=== PATIENT | female | born 1950 | race Hispanic/Latino ===

== ENCOUNTER 2017-12-05 21:23 | Emergency (ER) | payer OTHER ==
[2017-12-05] MEDS ORDERED: NA CHLORIDE 0.9% 1,000 ML ONE (23:18)
[2017-12-05] MEDS ORDERED: METOCLOPRAMIDE 10 MG/2mL INJ ONE (23:18)
[2017-12-05] MEDS ORDERED: KETOROLAC 30 MG/ML INJ ONE (23:18)
[2017-12-05] MEDS ORDERED: DIPHENHYDRAMINE 50 MG/ML VIAL ONE (23:18)
--- NOTE | 2017-12-05 23:45 | ER ---
Nurse's Notes [facility] Name: Noreen Xiao Age: 67 yrs Sex: Female : 1950 Arrival Date: 12/05/2017 Time: 21:26 Bed 15 Private MD: Diagnosis: Headache Presentation: 12/05 21:45 Presenting complaint: Patient states: I've been under a lot of stress and I haven't tl2 been drinking water. I have a severe headache, occipital area to left yazidi. Denies nausea. Reports dizziness. Transition of care: patient was not received from another setting of care. Onset of symptoms was December 05, 2017 at 10:00. Risk Assessment: Do you want to hurt yourself or someone else? Patient reports no desire to harm self or others. Initial Sepsis Screen: Does the patient meet any 2 criteria? No. Patient's initial sepsis screen is negative. Does the patient have a suspected source of infection? No. Patient's initial sepsis screen is negative. Care prior to arrival: None. 21:45 Method Of Arrival: Ambulatory tl2 21:45 Acuity: AMBROSIO 3 tl2 Triage Assessment: 22:08 Headache History: Denies prior headaches. General: Appears in no apparent distress. tl2 uncomfortable, Behavior is calm, cooperative, appropriate for age. Pain: Complains of pain in occipital area Pain radiates to left yazidi Pain currently is 7 out of 10 on a pain scale. Quality of pain is described as sharp, Pain began 1 day ago. Also complains of no other associated symptoms. Neuro: Level of Consciousness is awake, alert, obeys commands, Oriented to person, place, time, situation, Auto Body Mechanic are equal bilaterally Moves all extremities. Gait is steady, Speech is normal, Facial symmetry appears normal, Pupils are PERRLA, Intact Reports dizziness, headache. Cardiovascular: Denies chest pain. Respiratory: Airway is patent Respiratory effort is even, unlabored, Respiratory pattern is regular, symmetrical. GI: No signs and/or symptoms were reported involving the gastrointestinal system. : No signs and/or symptoms were reported regarding the genitourinary system. Derm: Skin is pink, warm \T\ dry. Historical: - Allergies: 22:00 Codeine; tl2 22:00 Sulfa (Sulfonamide Antibiotics); tl2 - Home Meds: 22:00 Novolog Sub-Q [Active]; metformin 500 mg Oral tab 2 tabs 2 times per day [Active]; tl2 levemir [Active]; - PMHx: 22:00 Diabetes - IDDM; Rheumatoid Arthritis; acid reflux; Hyperlipidemia; ulcerative colitis; tl2 Asthma; - Immunization history:: Adult Immunizations up to date. - Social history:: Smoking status: Patient/guardian denies using tobacco. - Ebola Screening: : No symptoms or risks identified at this time. Screenin:11 Abuse screen: Denies threats or abuse. Nutritional screening: No deficits noted. tl2 Tuberculosis screening: No symptoms or risk factors identified. Fall Risk None identified. Assessment: 22:11 General: see triage assessment. tl2 22:56 Reassessment: Patient appears in no apparent distress at this time. Patient and/or tl2 family updated on plan of care and expected duration. Pain level reassessed. Patient is alert, oriented x 3, equal unlabored respirations, skin warm/dry/pink. 23:13 Reassessment: Patient appears in no apparent distress at this time. Patient and/or tl2 family updated on plan of care and expected duration. Pain level reassessed. Patient is alert, oriented x 3, equal unlabored respirations, skin warm/dry/pink. 12/06 00:12 Reassessment: Patient appears in no apparent distress at this time. Patient and/or tl2 family updated on plan of care and expected duration. Pain level reassessed. Patient is alert, oriented x 3, equal unlabored respirations, skin warm/dry/pink. Pt calling for ride, will discharge when family arrives. Pt verbalized understanding of discharge instructions, and need for follow up Patient states feeling better. Vital Signs: 12/05 22:08 BP 140 / 77; Pulse 83; Resp 18; Temp 97.9(O); Pulse Ox 95% on R/A; Weight 90.72 kg; tl2 Height 5 ft. 3 in. (160.02 cm); Pain 7/10; 23:12 BP 141 / 69; Pulse 84; Resp 18; Pulse Ox 94% on R/A; tl2 22:08 Body Mass Index 35.43 (90.72 kg, 160.02 cm) tl2 ED Course: 21:26 Patient arrived in ED. am2 21:45 Liyah Xavier, MELANIE is Primary Nurse. tl2 21:47 Triage completed. tl2 21:53 Alex Ortiz NP is PHCP. pm1 21:53 Braxton Jennings MD is Attending Physician. pm1 21:[address] via wheelchair. cw1 22:04 CT completed. Patient moved back from CT. cw1 22:08 Arm band placed on right wrist. tl2 22:11 Patient has correct armband on for positive identification. Placed in gown. Bed in low tl2 position. Call light in reach. Side rails up X 1. Adult w/ patient. 22:13 CT Head Brain wo Cont In Process Unspecified. EDMS 23:13 Inserted saline lock: 22 gauge in left hand, using aseptic technique. tl2 12/06 00:12 No provider procedures requiring assistance completed. IV discontinued, intact, tl2 bleeding controlled, No redness/swelling at site. Pressure dressing applied. Administered Medications: 12/05 23:25 Drug: Benadryl 25 mg Route: IVP; Site: left hand; tl2 12/06 00:14 Follow up: Response: No adverse reaction; Marked relief of symptoms tl2 12/05 23:25 Drug: Reglan 10 mg Route: IVP; Site: left hand; tl2 12/06 00:14 Follow up: Response: No adverse reaction; Marked relief of symptoms tl2 12/05 23:25 Drug: TORadol 15 mg Route: IVP; Site: left hand; tl2 12/06 00:14 Follow up: Response: No adverse reaction; Marked relief of symptoms tl2 12/05 23:25 Drug: NS 0.9% 1000 ml Route: IV; Rate: 1000 ml; Site: left hand; tl2 12/06 00:15 Follow up: IV Status: Completed infusion tl2 Outcome: 12/05 23:44 Discharge ordered by . pm1 12/06 00:12 Discharged to home via wheelchair, with family. tl2 Condition: stable Discharge instructions given to patient, family, Instructed on discharge instructions, follow up and referral plans. Demonstrated understanding of instructions, follow-up care. 00:41 Patient left the ED. tl2 Signatures: Dispatcher [employer] EDGA Zahira Camejo cw1 Alex Ortiz NP GRIPPER MACHINE OPERATOR pm1 Liyah Xavier RN RN tl2 Sole Oropeza am2 Corrections: (The following items were deleted from the chart) 00:13 00:12 Reassessment: Patient appears in no apparent distress at this time. Patient tl2 and/or family updated on plan of care and expected duration. Pain level reassessed. Patient is alert, oriented x 3, equal unlabored respirations, skin warm/dry/pink. Pt calling for ride, will discharge when family arrives Patient states feeling better. tl2
--- NOTE | 2017-12-05 23:45 | EDPHYS ---
Physician Documentation [facility] Name: Noreen Xiao Age: 67 yrs Sex: Female : 1950 Arrival Date: 12/05/2017 Time: 21:26 Bed 15 Private MD: ED Physician Braxton Jennings HPI: 12/05 23:00 This 67 yrs old Female presents to ER via Ambulatory with complaints of pm1 Headache. 12/06 00:31 The patient complains of pain to the occipital area. pm1 00:31 The patient describes the headache as aching, constant. Onset: The symptoms/episode pm1 began/occurred yesterday. Associated signs and symptoms: Pertinent positives: dizziness, Pertinent negatives: fever, neck stiffness, paresthesias, Photophobia rash, sinus congestion, sinus tenderness, vision changes, vomiting. Severity of symptoms: in the emergency department the pain is unchanged. Headache History: The patient has had previous headaches and this one is similar to previous episodes. The symptoms are alleviated by nothing. the symptoms are aggravated by touching occipital area. The patient has experienced similar episodes in the past, a few times. The patient has not recently seen a physician. Historical: - Allergies: 12/05 22:00 Codeine; tl2 22:00 Sulfa (Sulfonamide Antibiotics); tl2 - Home Meds: 22:00 Novolog Sub-Q [Active]; metformin 500 mg Oral tab 2 tabs 2 times per day [Active]; tl2 levemir [Active]; - PMHx: 22:00 Diabetes - IDDM; Rheumatoid Arthritis; acid reflux; Hyperlipidemia; ulcerative colitis; tl2 Asthma; - Immunization history:: Adult Immunizations up to date. - Social history:: Smoking status: Patient/guardian denies using tobacco. - Ebola Screening: : No symptoms or risks identified at this time. ROS: 12/06 00:31 Constitutional: Negative for fever, chills, and weight loss, Eyes: Negative for injury, pm1 pain, redness, and discharge, ENT: Negative for injury, pain, and discharge, Neck: Negative for injury, pain, and swelling, Cardiovascular: Negative for chest pain, palpitations, and edema, Respiratory: Negative for shortness of breath, cough, wheezing, and pleuritic chest pain, Abdomen/GI: Negative for abdominal pain, nausea, vomiting, diarrhea, and constipation, Back: Negative for injury and pain, MS/Extremity: Negative for injury and deformity, Skin: Negative for injury, rash, and discoloration. Neuro: Positive for dizziness, headache, Negative for numbness, syncope, near syncope, tingling, weakness. Exam: 00:31 Constitutional: This is a well developed, well nourished patient who is awake, alert, pm1 and in no acute distress. Head/Face: Normocephalic, atraumatic. Eyes: Pupils equal round and reactive to light, extra-ocular motions intact. Lids and lashes normal. Conjunctiva and sclera are non-icteric and not injected. Cornea within normal limits. Periorbital areas with no swelling, redness, or edema. ENT: Nares patent. No nasal discharge, no septal abnormalities noted. Tympanic membranes are normal and external auditory canals are clear. Oropharynx with no redness, swelling, or masses, exudates, or evidence of obstruction, uvula midline. Mucous membranes moist. Neck: Trachea midline, no thyromegaly or masses palpated, and no cervical lymphadenopathy. Supple, full range of motion without nuchal rigidity, or vertebral point tenderness. No Meningismus. Chest/axilla: Normal chest wall appearance and motion. Nontender with no deformity. No lesions are appreciated. Cardiovascular: Regular rate and rhythm with a normal S1 and S2. No gallops, murmurs, or rubs. Normal PMI, no JVD. No pulse deficits. Respiratory: Lungs have equal breath sounds bilaterally, clear to auscultation and percussion. No rales, rhonchi or wheezes noted. No increased work of breathing, no retractions or nasal flaring. Abdomen/GI: Soft, non-tender, with normal bowel sounds. No distension or tympany. No guarding or rebound. No evidence of tenderness throughout. Back: No spinal tenderness. No costovertebral tenderness. Full range of motion. Skin: Warm, dry with normal turgor. Normal color with no rashes, no lesions, and no evidence of cellulitis. MS/ Extremity: Pulses equal, no cyanosis. Neurovascular intact. Full, normal range of motion. 00:31 Neuro: Orientation: is normal, Mentation: is normal, Cranial nerves: CN II- XII are normal as tested, Cerebellar function: normal finger to nose testing, Motor: moves all fours, Sensation: is normal, no obvious gross deficits, Gait: is steady, at a normal pace, without difficulty. Vital Signs: 12/05 22:08 BP 140 / 77; Pulse 83; Resp 18; Temp 97.9(O); Pulse Ox 95% on R/A; Weight 90.72 kg; tl2 Height 5 ft. 3 in. (160.02 cm); Pain 7/10; 23:12 BP 141 / 69; Pulse 84; Resp 18; Pulse Ox 94% on R/A; tl2 22:08 Body Mass Index 35.43 (90.72 kg, 160.02 cm) tl2 MDM: 21:53 Patient medically screened. pm1 23:43 Data reviewed: vital signs. Counseling: I had a detailed discussion with the patient pm1 and/or guardian regarding: the historical points, exam findings, and any diagnostic results supporting the discharge/admit diagnosis, radiology results, the need for outpatient follow up, to return to the emergency department if symptoms worsen or persist or if there are any questions or concerns that arise at home. 23:43 ED course: pain improved with medications given in the ER. 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 Pain with palpation to occiptal area pm1 and describes pain as sharp and electric like with palpation. 12/05 21:53 Order name: CT Head Brain wo Cont pm1 12/05 23:09 Order name: IV Saline Lock; Complete Time: 23:11 pm1 Administered Medications: 23:25 Drug: Benadryl 25 mg Route: IVP; Site: left hand; 2 12/06 00:14 Follow up: Response: No adverse reaction; Marked relief of symptoms 2 12/05 23:25 Drug: Reglan 10 mg Route: IVP; Site: left hand; tl2 12/06 00:14 Follow up: Response: No adverse reaction; Marked relief of symptoms tl2 12/05 23:25 Drug: TORadol 15 mg Route: IVP; Site: left hand; tl2 12/06 00:14 Follow up: Response: No adverse reaction; Marked relief of symptoms tl2 12/05 23:25 Drug: NS 0.9% 1000 ml Route: IV; Rate: 1000 ml; Site: left hand; tl2 12/06 00:15 Follow up: IV Status: Completed infusion tl2 Disposition: 12/05/17 23:44 Discharged to Home. Impression: Headache. - Condition is Stable. - Discharge Instructions: General Headache Without Cause. - Medication Reconciliation Form, Thank You Letter form. - Follow up: Emergency Department; When: As needed; Reason: Worsening of condition. Follow up: Private Physician; When: 2 - 3 days; Reason: Recheck today's complaints, Continuance of care, Re-evaluation by your physician. - Problem is new. - Symptoms have improved. Addendum: 12/07/2017 09:27 Co-signature as Attending Physician, Braxton Jennings MD I agree with the assessment and c ferrer plan of care. Signatures: Dispatcher [employer] EDTN Braxton Jennings MD MD cha Marinas, Patrick, PCMH SPECIALIST PCMH SPECIALIST pm1 Liyah Xavier RN RN tl2 Corrections: (The following items were deleted from the chart) 12/06 00:41 12/05 23:44 12/05/2017 23:44 Discharged to Home. Impression: Headache. Condition is tl2 Stable. Forms are Medication Reconciliation Form, Thank You Letter, Antibiotic Education, Prescription Opioid Use. Follow up: Emergency Department; When: As needed; Reason: Worsening of condition. Follow up: Private Physician; When: 2 - 3 days; Reason: Recheck today's complaints, Continuance of care, Re-evaluation by your physician. Problem is new. Symptoms have improved. pm1
[2017-12-06 00:51] VITALS: TEMP 97.9
[2017-12-06 00:52] VITALS: BP 141/69; O2SAT 94
--- NOTE | 2017-12-06 13:11 | RAD REPORT ---
EXAM DESCRIPTION: CT - Head Brain Wo Cont - 12/06/2017 12:33 am CLINICAL HISTORY: HEADACHE COMPARISON: Head Brain Wo Cont dated 12/12/2015 TECHNIQUE: All CT scans are performed using dose optimization technique as appropriate and may inclu de automated exposure control or mA/KV adjustment according to patient size. FINDINGS: No intracranial hemorrhage, hydrocephalus or extra-axial fluid collection.No areas of brai n edema or evidence of midline shift. The paranasal sinuses and mastoids are essentially clear. The calvarium is intact. IMPRESSION: No acute intracranial abnormality.
== END 2017-12-06 00:41 | disposition home or self-care (01) ==
LOC: ER 21:23
DX: R51 Headache (principal); E11.9 Type 2 diabetes mellitus without complications; E78.5 Hyperlipidemia, unspecified; J45.909 Unspecified asthma, uncomplicated; Z88.6 Allergy status to analgesic agent; Z88.2 Allergy status to sulfonamides; Z79.4 Long term (current) use of insulin
CPT/HCPCS: 70450; 96361; 96374; 96375; 99284; J2765; J7030

== ENCOUNTER 2018-10-25 18:28 | Emergency (ER) | payer OTHER ==
[2018-10-25] MEDS ORDERED: D50W 25 GM/50 ML SYRINGE IV ONE (19:09)
[2018-10-25] MEDS ORDERED: NA CHLORIDE 0.9% 500 ML ONE (19:09)
[2018-10-25 19:11] LABS: Absolute Lymphocytes (CBC) 2.2 K/uL (0.7-4.9); Absolute Monocytes 1.1 K/uL (0.1-1.3); Absolute Neutrophil 8.8 K/uL (1.8-8.0); Eosinophils % 3.7 % (0-4.4); Hematocrit 42.3 % (36.0-45.0); Lymphocytes % 17.2 % (15.3-44.8); MPV 8.4 fL (7.6-11.3); Monocytes % 8.9 % (3.3-12.3); RBC Red Blood Cell Count 4.66 M/uL (3.86-4.86)
[2018-10-25 19:36] LABS: ALT/SGPT 29 U/L (12-78); AST/SGOT 20 U/L (15-37); Albumin 3.8 g/dL (3.4-5.0); Alkaline Phosphatase 75 U/L (45-117); BUN Blood Urea Nitrogen 16 mg/dL (7-18); Bicarbonate 24 mmol/L (21-32); Bilirubin Direct 0.1 mg/dL (0-0.2); Bilirubin Total 0.5 mg/dL (0.2-1.0); Glucose Level 107 mg/dL (74-106); Lipase 171 U/L (73-393); Potassium 3.5 mmol/L (3.5-5.1); Protein, Total 7.5 g/dL (6.4-8.2); Sodium Level 138 mmol/L (136-145); Troponin I < 0.02 ng/mL (0.0-0.045)
[2018-10-25] MEDS ORDERED: ONDANSETRON 4 MG/2 ML VIAL ONE (19:53)
[2018-10-25] MEDS ORDERED: FAMOTIDINE 20 MG/2 ML VIAL IV ONE (19:53)
[2018-10-25 20:02] LABS: Urine Bacteria NONE SEEN /HPF (<20); Urine Culture Reflex Order NOT NEEDED; Urine Mucus 1+ /HPF (NONE SEEN); Urine RBC <5 /HPF (NONE SEEN)
[2018-10-25 20:02] LABS: Urine Blood NEGATIVE (NEG); Urine Glucose TRACE (NEG); Urine Protein NEGATIVE (NEG); Urine pH 5.5 (5.0-7.0)
--- NOTE | 2018-10-25 20:31 | EDPHYS ---
Physician Documentation [facility] Name: Noreen Xiao Age: 68 yrs Sex: Female : 1950 Arrival Date: 10/25/2018 Time: 18:29 Bed 19 Private MD: Unknown, Unknown ED Physician Braxton Jennings HPI: 10/25 18:55 This 68 yrs old Female presents to ER via Wheelchair with complaints of Low cp Blood Sugar, Nausea. 18:55 The patient or guardian reports hypoglycemia, that was potentially precipitated by cp believes she self administered too much insulin. 18:55 Onset: The symptoms/episode began/occurred today. Associated signs and symptoms: cp Pertinent positives: diaphoresis, nausea. Historical: - Allergies: 18:40 Codeine; sv 18:40 Sulfa (Sulfonamide Antibiotics); sv - Home Meds: 20:28 levemir [Active]; metformin 500 mg Oral tab 2 tabs 2 times per day [Active]; Novolog ae4 Sub-Q [Active]; - PMHx: 18:40 acid reflux; Asthma; Diabetes - IDDM; Hyperlipidemia; Rheumatoid Arthritis; ulcerative sv colitis; - Immunization history:: Adult Immunizations up to date. - Social history:: Smoking status: Patient/guardian denies using tobacco. - Ebola Screening: : Patient negative for fever greater than or equal to 101.5 degrees Fahrenheit, and additional compatible Ebola Virus Disease symptoms Patient denies exposure to infectious person Patient denies travel to an Ebola-affected area in the 21 days before illness onset. ROS: 19:02 Constitutional: Negative for body aches, chills, fever, poor PO intake. cp 19:02 Eyes: Negative for injury, pain, redness, and discharge. cp 19:02 ENT: Negative for drainage from ear(s), ear pain, sore throat, difficulty swallowing, difficulty handling secretions. 19:02 Cardiovascular: Negative for chest pain, edema, palpitations. 19:02 Respiratory: Negative for cough, shortness of breath, wheezing. 19:02 Abdomen/GI: Positive for nausea, Negative for abdominal pain, vomiting, diarrhea, constipation, black/tarry stool, rectal bleeding. 19:02 Back: Negative for pain at rest, pain with movement. 19:02 Skin: Negative for cellulitis, rash. 19:02 Neuro: Negative for altered mental status, dizziness, headache, numbness, syncope, weakness. 19:02 All other systems are negative. Exam: 19:05 Constitutional: The patient appears in no acute distress, alert, awake, non-toxic, well cp developed, well nourished, diaphoretic. 19:05 Head/Face: Normocephalic, atraumatic. cp 19:05 Eyes: Periorbital structures: appear normal, Conjunctiva: normal, no exudate, no injection, Sclera: no appreciated abnormality, Lids and lashes: appear normal, bilaterally. 19:05 ENT: External ear(s): are unremarkable, Ear canal(s): are normal, clear, TM's: are normal, no evidence of bulging, no erythema, Nose: is normal, Mouth: Lips: moist, Oral mucosa: pink and intact, moist, Posterior pharynx: is normal, airway is patent, no erythema, no exudate. 19:05 Neck: ROM/movement: is normal, is supple, without pain, no range of motions limitations, no nuchal rigidity. 19:05 Chest/axilla: Inspection: normal, Palpation: is normal, no crepitus, no tenderness. 19:05 Cardiovascular: Rate: bradycardic, Rhythm: regular, Edema: is not appreciated, JVD: is not appreciated. 19:05 Respiratory: the patient does not display signs of respiratory distress, Respirations: normal, no use of accessory muscles, no retractions, no splinting, no tachypnea, labored breathing, is not present, Breath sounds: are clear throughout, no decreased breath sounds, no stridor, no wheezing. 19:05 Abdomen/GI: Inspection: abdomen appears normal, Bowel sounds: active, all quadrants, Palpation: abdomen is soft and non-tender, in all quadrants, rebound tenderness, is not appreciated, voluntary guarding, is not appreciated, involuntary guarding, is not appreciated. 19:05 Back: CVA tenderness, is absent. 19:05 Skin: no rash present. 19:05 Neuro: Orientation: to person, place \T\ time. Mentation: is normal, Cerebellar function: Romberg testing is negative, normal finger to nose testing, heel to pearce testing is normal, Motor: moves all fours, strength is normal, Sensation: is normal. 19:25 ECG was reviewed by the Attending Physician. cp Vital Signs: 18:40 BP 153 / 70; Pulse 59; Resp 24; Temp 97.4; Pulse Ox 97% ; Weight 90.72 kg; Height 5 ft. sv 3 in. (160.02 cm); Pain 0/10; 20:28 BP 152 / 65; Pulse 83; Resp 17; Pulse Ox 96% on R/A; ae4 18:40 Body Mass Index 35.43 (90.72 kg, 160.02 cm) sv NIH Stroke Scale Scores: 19:05 NIHSS Score: 0 cp MDM: 18:42 Patient medically screened. cp 19:00 Differential diagnosis: DKA, hyperglycemia, hypoglycemic episode, CVA, acute MO. cp 20:30 Data reviewed: vital signs, nurses notes, lab test result(s), EKG, and as a result, I cp will discharge patient. 20:30 Test interpretation: by ED physician or midlevel provider: ECG. Counseling: I had a cp detailed discussion with the patient and/or guardian regarding: the historical points, exam findings, and any diagnostic results supporting the discharge/admit diagnosis, lab results, to return to the emergency department if symptoms worsen or persist or if there are any questions or concerns that arise at home. Response to treatment: the patient's symptoms have markedly improved after treatment, VSS. Patient reports symptoms markedly improved. Will discharge to home for continued monitoring. 10/25 18:48 Order name: Basic Metabolic Panel; Complete Time: 20:13 10/25 18:48 Order name: CBC with Diff; Complete Time: 19:31 10/25 19:30 Interpretation: Normal except: WBC 12.7; NEUT A 8.8. 10/25 18:48 Order name: Creatinine for Radiology; Complete Time: 20:13 10/25 18:48 Order name: Hepatic Function; Complete Time: 20:13 10/25 18:48 Order name: Lipase; Complete Time: 20:13 10/25 18:48 Order name: Urine Microscopic Only; Complete Time: 20:13 10/25 18:48 Order name: IV Saline Lock; Complete Time: 19:03 10/25 18:48 Order name: Troponin I; Complete Time: 20:13 10/25 18:48 Order name: EKG; Complete Time: 18:50 10/25 19:56 Order name: Urine Dipstick--Ancillary (enter results); Complete Time: 20:13 mw2 10/25 18:48 Order name: Labs collected and sent; Complete Time: 19:03 cp 10/25 18:48 Order name: Urine Dipstick-Ancillary (obtain specimen); Complete Time: 20:18 cp 10/25 18:48 Order name: EKG - Nurse/Tech; Complete Time: 19:15 cp 10/25 20:14 Order name: PO challenge: please feed with sandwich; Complete Time: 20:42 cp EC:25 Rate is 75 beats/min. Rhythm is regular. UT interval is normal. QRS interval is normal. cp QT interval is normal. Interpreted by me. Reviewed by me. Administered Medications: 18:54 Drug: NS 0.9% 500 ml Route: IV; Rate: bolus; Site: left antecubital; ae4 19:23 Follow up: IV Status: Completed infusion ae4 18:55 Drug: D50W 25 ml Route: IVP; Site: left antecubital; ae4 19:22 Follow up: Response: Other; FSBS 183 ae4 19:48 Drug: Zofran 4 mg Route: IVP; Site: left antecubital; cc3 20:20 Follow up: Response: Nausea is decreased ae4 19:52 Drug: Pepcid 20 mg Route: IVP; Site: left antecubital; cc3 20:20 Follow up: Response: No adverse reaction; Nausea is decreased ae4 Point of Care Testing: Blood Glucose: 18:33 Blood Glucose: 77 mg/dL; sv 19:22 Blood Glucose: 183 mg/dL; ae4 20:23 Blood Glucose: 183 mg/dL; ae4 Ranges: Critical Glucose Levels:Adult <50 mg/dl or >400 mg/dl <40 mg/dl or >180 mg/dl Disposition: 10/26 08:27 Co-signature as Attending Physician, Braxton Jennings MD I agree with the assessment and albert plan of care. Disposition: 10/25/18 20:31 Discharged to Home. Impression: Hypoglycemia, unspecified, Nausea. - Condition is Stable. - Discharge Instructions: Hypoglycemia, Nausea, Adult, Blood Glucose Monitoring, Adult. - Prescriptions for Zofran 4 mg Oral Tablet - take 1 tablet by ORAL route every 12 hours As needed; 20 tablet. - Medication Reconciliation Form, Thank You Letter, Antibiotic Education, Prescription Opioid Use form. - Follow up: Private Physician; When: 1 - 2 days; Reason: Worsening of condition. - Problem is new. - Symptoms have improved. NIH Stroke Scale - NIH Stroke Score Date: 10/25/2018 Time: 19:05 Total Score = 0 1a. Level of Consciousness (LOC) - 0(Alert) 1b. Level of Consciousness (LOC) (Year \T\ Age) - 0(Both) 1c. LOC Commands (Open \T\ Closes Eyes/Consumer Marketing Specialist) - 0(Both) 2. Best Gaze (Lateral Gaze Paresis) - 0(Normal) 3. Visual Field Loss - 0(No visual loss) 4. Facial Palsy - 0(Normal) 5a. Left Arm: Motor (10-second hold) - 0(No drift) 5b. Right Arm: Motor (10-second hold) - 0(No drift) 6a. Left Leg: Motor (5-second hold - always test supine) - 0(No drift) 6b. Right Leg: Motor (5-second hold - always test supine) - 0(No drift) 7. Limb Ataxia (finger/nose \T\ heel/pearce - test with eyes open) - 0(Absent) 8. Sensory Loss (pinprick arms/legs/face) - 0(Normal) 9. Best Language: Aphasia (description/naming/reading) - 0(No aphasia) 10. Dysarthria (speech clarity - read or repeat words) - 0(Normal) 11. Extinction and Inattention (visual/tactile/auditory/spatial/personal) - 0(No abnormality) Initials: cp Signatures: Dispatcher [employer] Ivory Blunt RN RN sv Anderson, Corey, MD MD cha Page, Corey, PA PA cp Lee Prater RN RN jb4 Kala Camarena cc3 Ozzy Osborne RN RN ae4 Corrections: (The following items were deleted from the chart) 10/25 19:32 19:30 Normal except: WBC 12.7. cp cp 20:58 20:31 10/25/2018 20:31 Discharged to Home. Impression: Hypoglycemia, jb4 unspecified; Nausea. Condition is Stable. Forms are Medication Reconciliation Form, Thank You Letter, Antibiotic Education, Prescription Opioid Use. Follow up: Private Physician; When: 1 - 2 days; Reason: Worsening of condition. Problem is new. Symptoms have improved. cp
--- NOTE | 2018-10-25 20:31 | ER ---
Nurse's Notes [facility] Name: Noreen Xiao Age: 68 yrs Sex: Female : 1950 Arrival Date: 10/25/2018 Time: 18:29 Bed 19 Private MD: Unknown, Unknown Diagnosis: Hypoglycemia, unspecified;Nausea Presentation: 10/25 18:33 Presenting complaint: Patient states: hypoglycemia, sweating, nausea, BS-60 at home, sv tried to eat foods to bring it up but then started getting nauseated. Symptoms started today. Transition of care: patient was not received from another setting of care. Onset of symptoms was October 25, 2018. Initial Sepsis Screen: Does the patient meet any 2 criteria? No. Patient's initial sepsis screen is negative. Does the patient have a suspected source of infection? No. Patient's initial sepsis screen is negative. Care prior to arrival: None. 18:33 Method Of Arrival: Wheelchair sv 18:33 Acuity: AMBROSIO 3 sv 20:27 Risk Assessment: Do you want to hurt yourself or someone else? Patient reports no ae4 desire to harm self or others. Triage Assessment: 20:27 General: Appears uncomfortable. General: Behavior is anxious. GI: Reports nausea. ae4 Historical: - Allergies: 18:40 Codeine; sv 18:40 Sulfa (Sulfonamide Antibiotics); sv - Home Meds: 20:28 levemir [Active]; metformin 500 mg Oral tab 2 tabs 2 times per day [Active]; Novolog ae4 Sub-Q [Active]; - PMHx: 18:40 acid reflux; Asthma; Diabetes - IDDM; Hyperlipidemia; Rheumatoid Arthritis; ulcerative sv colitis; - Immunization history:: Adult Immunizations up to date. - Social history:: Smoking status: Patient/guardian denies using tobacco. - Ebola Screening: : Patient negative for fever greater than or equal to 101.5 degrees Fahrenheit, and additional compatible Ebola Virus Disease symptoms Patient denies exposure to infectious person Patient denies travel to an Ebola-affected area in the 21 days before illness onset. Screenin:27 Abuse screen: Denies threats or abuse. Nutritional screening: No deficits noted. ae4 Tuberculosis screening: No symptoms or risk factors identified. Fall Risk None identified. Assessment: 18:35 General: Appears distressed, uncomfortable, Behavior is cooperative, anxious, crying, ae4 restless. Pain: Denies pain. Neuro: Level of Consciousness is awake, alert, obeys commands, Oriented to person, place, time, situation, Appropriate for age. Cardiovascular: Heart tones S1 S2 present Rhythm is regular. Respiratory: Airway is patent Respiratory effort is even, unlabored, Respiratory pattern is regular, symmetrical, Breath sounds are clear bilaterally. GI: Abdomen is round Reports nausea. : No signs and/or symptoms were reported regarding the genitourinary system. EENT: No signs and/or symptoms were reported regarding the EENT system. Derm: Skin is diaphoretic, Skin is normal, Skin temperature is warm. Musculoskeletal: Reports Generalized weakness. 20:29 Reassessment: Patient appears in no apparent distress at this time. Patient and/or ae4 family updated on plan of care and expected duration. Pain level reassessed. Patient states feeling better. Patient states symptoms have improved. 20:57 Reassessment: Patient appears in no apparent distress at this time. Patient and/or jb4 family updated on plan of care and expected duration. Pain level reassessed. Patient is alert, oriented x 3, equal unlabored respirations, skin warm/dry/pink. Patient states feeling better. Vital Signs: 18:40 BP 153 / 70; Pulse 59; Resp 24; Temp 97.4; Pulse Ox 97% ; Weight 90.72 kg; Height 5 ft. sv 3 in. (160.02 cm); Pain 0/10; 20:28 BP 152 / 65; Pulse 83; Resp 17; Pulse Ox 96% on R/A; ae4 18:40 Body Mass Index 35.43 (90.72 kg, 160.02 cm) sv NIH Stroke Scale Scores: 19:05 NIHSS Score: 0 cp ED Course: 18:29 Patient arrived in ED. ag5 18:29 Unknown, Unknown is Private Physician. ag5 18:40 Braxton Merino PA is PHCP. cp 18:40 Braxton Jennings MD is Attending Physician. cp 18:40 Triage completed. sv 18:41 Arm band placed on. sv 18:50 Ozzy Osborne, MELANIE is Primary Nurse. ae4 19:03 Initial lab(s) drawn, by me, sent to lab. Inserted saline lock: 22 gauge in left mh5 antecubital area, using aseptic technique. Blood collected. 19:04 Patient has correct armband on for positive identification. Placed in gown. Bed in low mh5 position. Call light in reach. Adult w/ patient. Warm blanket given. potline monitor on. Pulse ox on. NIBP on. 20:57 No provider procedures requiring assistance completed. IV discontinued, intact, jb4 bleeding controlled, No redness/swelling at site. Administered Medications: 18:54 Drug: NS 0.9% 500 ml Route: IV; Rate: bolus; Site: left antecubital; ae4 19:23 Follow up: IV Status: Completed infusion ae4 18:55 Drug: D50W 25 ml Route: IVP; Site: left antecubital; ae4 19:22 Follow up: Response: Other; FSBS 183 ae4 19:48 Drug: Zofran 4 mg Route: IVP; Site: left antecubital; cc3 20:20 Follow up: Response: Nausea is decreased ae4 19:52 Drug: Pepcid 20 mg Route: IVP; Site: left antecubital; cc3 20:20 Follow up: Response: No adverse reaction; Nausea is decreased ae4 Point of Care Testing: Blood Glucose: 18:33 Blood Glucose: 77 mg/dL; sv 19:22 Blood Glucose: 183 mg/dL; ae4 20:23 Blood Glucose: 183 mg/dL; ae4 Ranges: Intake: Outcome: 20:31 Discharge ordered by MD. cp 20:57 Discharged to home ambulatory, with family. jb4 20:57 Condition: stable 20:57 Discharge instructions given to patient, family, Instructed on discharge instructions, follow up and referral plans. medication usage, Demonstrated understanding of instructions, follow-up care, medications, Prescriptions given X 1. 20:58 Patient left the ED. jb4 NIH Stroke Scale - NIH Stroke Score Date: 10/25/2018 Time: 19:05 Total Score = 0 1a. Level of Consciousness (LOC) - 0(Alert) 1b. Level of Consciousness (LOC) (Year \T\ Age) - 0(Both) 1c. LOC Commands (Open \T\ Closes Eyes/Telehealth Director) - 0(Both) 2. Best Gaze (Lateral Gaze Paresis) - 0(Normal) 3. Visual Field Loss - 0(No visual loss) 4. Facial Palsy - 0(Normal) 5a. Left Arm: Motor (10-second hold) - 0(No drift) 5b. Right Arm: Motor (10-second hold) - 0(No drift) 6a. Left Leg: Motor (5-second hold - always test supine) - 0(No drift) 6b. Right Leg: Motor (5-second hold - always test supine) - 0(No drift) 7. Limb Ataxia (finger/nose \T\ heel/pearce - test with eyes open) - 0(Absent) 8. Sensory Loss (pinprick arms/legs/face) - 0(Normal) 9. Best Language: Aphasia (description/naming/reading) - 0(No aphasia) 10. Dysarthria (speech clarity - read or repeat words) - 0(Normal) 11. Extinction and Inattention (visual/tactile/auditory/spatial/personal) - 0(No abnormality) Initials: cp Signatures: Ivory Parish, RN RN Braxton Cloud PA PA cp Bryson, James, RN RN chip4 Ana Villarreal 5 Kala Camarena 3 Marcelle Rausch 5 Ozzy Osborne RN RN ae4
[2018-10-25 21:17] VITALS: TEMP 97.4
[2018-10-25 21:19] VITALS: BP 152/65; O2SAT 96
--- NOTE | 2018-10-26 07:58 | EKG ---
Test Date: 2018-10-25 Test Time: 19:17:30 [employer] Cork: KAVITA MEASUREMENT RESULTS: Intervals: Rate: 75 CT: 142 QRSD: 92 QT: 422 QTc: 471 [place]: P: 49 CT: 142 QRS: 26 T: 67 INTERPRETIVE STATEMENTS: Normal sinus rhythm Possible Left atrial enlargement Possible Anterior infarct, age undetermined Abnormal ECG Compared to ECG 06/19/2013 09:53:18 Myocardial infarct finding now present Electronically Signed On 10-26-18 07:56:59 CDT by Eliseo Gilbert
== END 2018-10-25 20:58 | disposition home or self-care (01) ==
LOC: ER 18:28
DX: E11.649 Type 2 diabetes mellitus with hypoglycemia without coma (principal); E78.5 Hyperlipidemia, unspecified; Z79.4 Long term (current) use of insulin; Z88.2 Allergy status to sulfonamides; Z88.5 Allergy status to narcotic agent
CPT/HCPCS: 93005; 85025; 80048; 36415; 82962 ×3; 80076; 84484; 83690; 96375; 96374; 99284; J2405; 81003; 81015

== ENCOUNTER 2020-02-01 14:15 | Emergency (ER) | payer OTHER ==
--- OUTSIDE RECORDS SUMMARY | 2020-02-01 14:16 | XMS REPORT | Continuity of Care Document ---
:[address] [facility] t Address [facility] [address] [place] [address] Care Team Providers Name Role Phone Unavailable Unavailable Unavailable Problems Condition Condition Condition Status Onset Resolution Last Treating Co mments Source Name Details Category Date Date Treatment Clinician Date Arthritis Arthritis Problem Active [facility] right [facility] Sprain of Sprain of Problem Active [facility] unspecifie unspecifie Aliza kes - d site of d site of Tho leticia right right l knee, knee, Outpati initial initial ent encounter encounter Clin ics Pain in Pain in Problem Active [facility] joint of joint of [facility] - left hand left hand [facility]o [facility] l [facility] Pain, Pain, Diagnosis Active [facility] joint, joint, [facility] - knee, knee, [facility] right right l Outpati ent Clinics Trigger Trigger Problem Active [facility] finger, finger, [facility] - left left Memoria middle middle l finger finger Outpati ent Clinics Trigger Trigger Problem Active [facility] finger, finger, [facility] - left ring left ring Tho leticia finger finger l [facility] Allergies, Adverse Reactions, Alerts Allergy Allergy Status Severity Reaction(s) Onset Inactive Treating Comm ents Source Name Type Date Date Clinician penicill Adverse Active Info Not [facility] in Reaction Available [facility] codeine Adverse Active Info Not [facility] Reaction Available [facility] Sulfa Adverse Active Info Not [facility] Reaction Available [facility] Medications Ordered Filled Start Stop Current Ordering Indication Dosage Frequency Signature Comments Components Source Medication Medication Date Date Medication? Clinician (SIG) Name Name Krill Oil Krill Oil Yes Dinh not [facility] [place] [place] Liu defined [facility] - [facility] Co Q 10 Co Q 10 Yes Dinh not [facility] Liu defined [facility] Metformin Metformin Yes Dinh [address] [facility] [facility] HCl HCl Liu with a [facility] - meal [facility] Vitamin D Vitamin D Yes Dinh not [facility] Liu defined [facility] NovoFine NovoFine Yes Dinh not [facility] Liu defined [facility] NovoLog NovoLog Yes Dinh not [facility] Flexpen Flexpen Liu defined Luke s - Memoria [facility] Levemir Levemir Yes Dinh not [facility] FlexTouch FlexTouch Liu defined [facility] Clinics Procedures This patient has no known procedures. Encounters Start End Encounter Admission Attending Care Care Encounter Source Date/Time Date/Time Type Type Clinicians Facility Department ID 2019-03-18 2019-03-18 Outpatient Puja Whitfield [id number] 08:00:00 08:00:00 t Bone Bone and [facility] - and [facility] Clinic of [facility] Results This patient has no known results.
--- NOTE | 2020-02-01 16:14 | RAD REPORT ---
EXAM DESCRIPTION: CT - Head Brain Wo Cont - 02/01/2020 3:57 pm CLINICAL HISTORY: Head injury status post trauma. Headache COMPARISON: 2019 TECHNIQUE: Computed axial tomography of the head was obtained. IV contrast was not requested. All CT scans are performed using dose optimization technique as appropriate and may include automated exposure control or mA/KV adjustment according to patient size. FINDINGS: An intracranial bleed is not seen . The ventricles are normal in caliber. No extra-axial fluid collection is noted. Mild low-density areas within periventricular, deep and subcortical white matter likely represent isc hemic changes secondary to small vessel disease. Fluid within the sinuses/ mastoids is not seen. IMPRESSION: No acute intracranial abnormality is seen. If patient's symptoms persist MRI of the bra in would be recommended.
--- NOTE | 2020-02-01 16:20 | ER ---
Nurse's Notes [facility] Name: Noreen Xiao Age: 69 yrs Sex: Female : 1950 Arrival Date: 02/01/2020 Time: 14:16 Bed 2 Private MD: Mariola Skelton Diagnosis: Unspecified injury of head Presentation: 01/31 14:38 Chief complaint: Patient states: Hit her head while loading into wheelchair van on ll1 Thursday. No LOC. Has ROMERO and dizziness since. Sent in by her doctor for eval. Coronavirus screen: Client denies travel out of the [place] in the last 14 days. At this time, the client does not indicate any symptoms associated with coronavirus-19. Ebola Screen: Patient denies travel to an Ebola-affected area in the 21 days before illness onset. Initial Sepsis Screen: Does the patient meet any 2 criteria? No. Patient's initial sepsis screen is negative. Risk Assessment: Do you want to hurt yourself or someone else? Patient reports no desire to harm self or others. Onset of symptoms was January 27, 2020. 14:38 Method Of Arrival: Ambulatory ll1 14:38 Acuity: AMBROSIO 3 ll1 14:42 Initial Sepsis Screen: Does the patient have a suspected source of infection? No. sv Patient's initial sepsis screen is negative. Historical: - Allergies: 14:41 Sulfa (Sulfonamide Antibiotics); ll1 14:41 Codeine; ll1 - PMHx: 14:41 acid reflux; Asthma; Diabetes - IDDM; Hyperlipidemia; Rheumatoid Arthritis; ulcerative ll1 colitis; breast CA-2005; - PSHx: 14:41 cataract repair; ll1 - Immunization history:: Flu vaccine is up to date. - Social history:: Smoking status: Patient denies any tobacco usage or history of. Screenin:38 Abuse screen: Denies threats or abuse. Denies injuries from another. Nutritional sv screening: No deficits noted. Tuberculosis screening: No symptoms or risk factors identified. Fall Risk None identified. Assessment: 15:12 General: Appears in no apparent distress. well developed, Behavior is calm, sv cooperative, appropriate for age, Reports she has had multiple concussions in the past since she was 32. Pain: Complains of pain in top of head, left temporal area and right temporal area Pain currently is 8 out of 10 on a pain scale. Neuro: Level of Consciousness is awake, alert, obeys commands, Oriented to person, place, time, situation, Moves all extremities. Full function Gait is steady, Speech is normal, Reports dizziness, headache. Respiratory: Respiratory effort is even, unlabored, Respiratory pattern is regular, symmetrical. Derm: Skin is normal. Musculoskeletal: Range of motion: intact in all extremities. 15:12 Neuro: Denies blurred vision photophobia diplopia. sv 16:46 Reassessment: Patient appears in no apparent distress at this time. No changes from sv previously documented assessment. Patient and/or family updated on plan of care and expected duration. Pain level reassessed. Patient is alert, oriented x 3, equal unlabored respirations, skin warm/dry/pink. Vital Signs: 14:38 BP 151 / 76; Pulse 84; Resp 17; Temp 98.2; Pulse Ox 96% ; Pain 8/10; ll1 15:30 BP 140 / 75; Pulse 77; Resp 16; Pulse Ox 96% on R/A; sv 16:10 BP 120 / 54; Pulse 73; Resp 16; Pulse Ox 95% on R/A; sv ED Course: 14:16 Patient arrived in ED. ds1 14:21 Mariola Skelton is Private Physician. ds1 14:38 Ivory Parish, RN is Primary Nurse. sv 14:38 Awaiting ED provider evaluation. sv 14:38 Patient placed. sv 14:38 Patient has correct armband on for positive identification. Bed in low position. Call sv light in reach. Door closed. Head of bed elevated. 14:40 Triage completed. ll1 15:03 Gilmar Heath PA is PHCP. jmm 15:03 Robbi Cullen MD is Attending Physician. jmm 15:11 Awaiting ED provider evaluation. sv 15:23 Nurse Practitioner and/or Physician Director Of Emergency Nursing to see patient. sv 15:30 Pulse ox on. NIBP on. Warm blanket given. sv 15:[address] Scan. sv 15:57 CT Head Brain wo Cont In Process Unspecified. EDMS 16:46 No provider procedures requiring assistance completed. Patient did not have IV access sv during this emergency room visit. Administered Medications: No medications were administered Outcome: 16:20 Discharge ordered by . jmm 16:46 Discharged to home ambulatory. sv 16:46 Condition: stable 16:46 Discharge instructions given to patient, Instructed on discharge instructions, follow up and referral plans. Demonstrated understanding of instructions, follow-up care. 16:46 Patient left the ED. sv Signatures: Dispatcher [employer] Ivory Blunt RN RN sv Gilmar Heath PA PA jmm Sanford, Demi ds1 Juan Burr RN RN ll1 Corrections: (The following items were deleted from the chart) 15:31 15:12 Pain: Complains of pain in face and scalp Pain currently is 8 out of 10 on a pain sv scale. sv 15:35 15:12 General: Appears in no apparent distress. well developed, Behavior is calm, sv cooperative, appropriate for age, sv
--- NOTE | 2020-02-01 16:20 | EDPHYS ---
Physician Documentation [facility] Name: Noreen Xiao Age: 69 yrs Sex: Female : 1950 Arrival Date: 02/01/2020 Time: 14:16 Bed 2 Private MD: Mariola Skelton ED Physician Robbi Cullen HPI: 01/31 15:20 This 69 yrs old Female presents to ER via Ambulatory with complaints of jmm Headache. 15:20 The patient complains of pain to the right frontal area. Onset: The symptoms/episode jmm began/occurred acutely, 5 day(s) ago. Associated signs and symptoms: Pertinent negatives: fever, vomiting. This is a 69 year old female with a history of DM, HLP, RA, that presents to the ED with complaints of left side headache after injuring her scalp while walking into a door frame. Denies LOC but states she has had multiple head injuries in the past. Denies vomiting, LOC, seizure. . Historical: - Allergies: 14:41 Sulfa (Sulfonamide Antibiotics); ll1 14:41 Codeine; ll1 - PMHx: 14:41 acid reflux; Asthma; Diabetes - IDDM; Hyperlipidemia; Rheumatoid Arthritis; ulcerative ll1 colitis; breast CA-2005; - PSHx: 14:41 cataract repair; ll1 - Immunization history:: Flu vaccine is up to date. - Social history:: Smoking status: Patient denies any tobacco usage or history of. ROS: 15:20 Constitutional: Negative for fever, chills, and weight loss, Cardiovascular: Negative jmm for chest pain, palpitations, and edema, Respiratory: Negative for shortness of breath, cough, wheezing, and pleuritic chest pain. 15:20 Neuro: Positive for headache. 15:20 All other systems are negative. Exam: 15:20 Constitutional: This is a well developed, well nourished patient who is awake, alert, jmm and in no acute distress. Head/Face: atraumatic. Eyes: EOMI, no conjunctival erythema appreciated ENT: Moist Mucus Membranes Neck: Trachea midline, Supple Chest/axilla: Normal chest wall appearance and motion. Cardiovascular: Regular rate and rhythm. No edema appreciated Respiratory: Normal respirations, no respiratory distress appreciated Abdomen/GI: Non distended, soft Back: Normal ROM Skin: General appearance color normal MS/ Extremity: Moves all extremities, no obvious deformities appreciated, no edema noted to the lower extremities Neuro: Awake and alert, normal gait Psych: Behavior is normal, Mood is normal, Patient is cooperative and pleasant Vital Signs: 14:38 BP 151 / 76; Pulse 84; Resp 17; Temp 98.2; Pulse Ox 96% ; Pain 8/10; ll1 15:30 BP 140 / 75; Pulse 77; Resp 16; Pulse Ox 96% on R/A; sv 16:10 BP 120 / 54; Pulse 73; Resp 16; Pulse Ox 95% on R/A; sv MDM: 15:20 Patient medically screened. [facility] 16:30 Data reviewed: vital signs, nurses notes, radiologic studies, CT scan. Data [facility] interpreted:. ED course: Patient is alert and non toxic in appearance. No neuro deficit appreciated. Patient is advised to follow up with sports medicine due to multiple head injuries. Patient understood and agrees with the plan of care. . 01/31 15:23 Order name: CT Head Brain wo Cont; Complete Time: 16:17 [facility] Administered Medications: No medications were administered Disposition: 16:59 Co-signature as Attending Physician, Robbi Cullen MD I agree with the assessment and kdr plan of care. Disposition: 02/01/20 16:20 Discharged to Home. Impression: Unspecified injury of head. - Condition is Stable. - Discharge Instructions: Head Injury, Adult. - Medication Reconciliation Form, Thank You Letter, Antibiotic Education, Prescription Opioid Use form. - Follow up: Private Physician; When: 2 - 3 days; Reason: Recheck today's complaints, Continuance of care, Re-evaluation by your physician. - Notes: Please follow up with sports medicine for further evaluation of multiple head injuries Signatures: Dispatcher [employer] EDIvory Ruth RN RN Robbi Ponce MD MD kdr Mickail, Joel, PA PA [facility] Juan Burr RN RN ll1 Corrections: (The following items were deleted from the chart) 16:46 16:20 02/01/2020 16:20 Discharged to Home. Impression: Unspecified injury of head. sv Condition is Stable. Forms are Medication Reconciliation Form, Thank You Letter, Antibiotic Education, Prescription Opioid Use. Follow up: Private Physician; When: 2 - 3 days; Reason: Recheck today's complaints, Continuance of care, Re-evaluation by your physician. tj
== END 2020-02-01 16:46 | disposition home or self-care (01) ==
LOC: ER 14:15
DX: R51 Headache (principal); S09.90XA Unspecified injury of head, initial encounter; W22.8XXA Striking against or struck by other objects, initial encounter; Y93.9 Activity, unspecified; Y92.9 Unspecified place or not applicable; Z88.2 Allergy status to sulfonamides; Z88.6 Allergy status to analgesic agent
CPT/HCPCS: 70450; 99283

== ENCOUNTER 2020-05-16 14:00 | Emergency (ER) | payer OTHER ==
--- OUTSIDE RECORDS SUMMARY | 2020-05-16 14:16 | XMS REPORT | Continuity of Care Document ---
:1950 Author Organization [facility] t Address [facility] [address] [place] [address] Care Team Providers Name Role Phone Unavailable [...] left hand left hand Tho leticia l [facility] Clinics Pain, Pain, Diagnosis Active [facility] joint, joint, [facility] - knee, knee, [facility] right right l Outpati ent Clinics Trigger Trigger Problem Active [facility] finger, finger, [facility] - left left Memoria middle middle l finger finger Outpati ent Clinics Trigger Trigger Problem Active [facility] finger, finger, [facility] - left ring left ring Tho leticia finger finger l [facility] Clinics Allergies, Adverse Reactions, Alerts Allergy Allergy Status Severity Reaction(s) Onset Inactive Treating Comm ents Source Name Type Date Date Clinician penicill Adverse Active Info Not [facility] Reaction Available [facility] codeine Adverse Active Info Not [facility] Reaction Available [facility] Sulfa Adverse Active Info Not [facility] Reaction Available [facility] Medications Ordered Filled Start Stop Current Ordering Indication Dosage Frequency Signature Comments Components Source Medication Medication Date Date Medication? Clinician (SIG) Name Name Krill Oil Krill Oil Yes Dinh not [facility] [place]-[facility] [place] Liu defined [facility] - [facility] Co Q 10 Co Q 10 Yes Dinh not [facility] Liu defined [facility] Metformin Metformin Yes Dinh [address] [facility] HCl HCl Liu with a [facility]ukes - meal Memoria l [facility] ent [facility] Vitamin D Vitamin D Yes Dinh not [facility] Liu defined [facility] - [facility] Clinics NovoFine NovoFine Yes Dinh not [facility] Liu defined [facility] - [facility] ent [facility] NovoLog NovoLog Yes Dinh not [facility] Flexpen Flexpen Liu defined Luke s - Memoria l [facility] ent [facility] Levemir Levemir Yes Dinh not [facility] FlexTouch FlexTouch Liu defined [facility] Clinics Procedures This patient has no known procedures. Encounters Start End Encounter Admission Attending Care Care Encounter Source Date/Time Date/Time Type Type Clinicians Facility Department ID 2019-03-18 2019-03-18 Outpatient Puja Whitfield [id number] 08:[facility]:00 08:00:00 t [facility] Results This patient has no known results.
--- NOTE | 2020-05-16 15:12 | RAD REPORT ---
EXAM DESCRIPTION: CTSpine Lumbar Wo Con05/16/2020 2:56 pm CLINICAL HISTORY: Back injury with back pain and radiculopathy COMPARISON: None TECHNIQUE: Computed axial tomography lumbar spine was obtained with coronal and sagittal reconstruct ion. All CT scans are performed using dose optimization technique as appropriate and may include automated exposure control or mA/KV adjustment according to patient size. FINDINGS: Mild anterior subluxation of L4 on L5 No fracture or dislocation Spondylosis L4-5 appears result in moderate central spinal stenosis IMPRESSION: Negative for a lumbar fracture. Mild anterior subluxation L4 on L5 with spondylosis appear to result in moderate central spinal steno sis If patient's continues have symptoms to suggest spinal canal pathology MRI would be recommended
[2020-05-16] MEDS ORDERED: MORPHINE 4 MG/ML SYR ONE (15:51)
[2020-05-16] MEDS ORDERED: KETOROLAC 30 MG/ML INJ ONE (15:51)
[2020-05-16] MEDS ORDERED: ONDANSETRON 4 MG (ODT) TAB ONE (15:51)
[2020-05-16] MEDS ORDERED: LIDOCAINE 4% PATCH ONE (15:52)
--- NOTE | 2020-05-16 16:21 | ER ---
Nurse's Notes [facility] [place] Name: Noreen Xiao Age: 69 yrs Sex: Female : 1950 Arrival Date: 05/16/2020 Time: 14:02 Bed 28 Private MD: Diagnosis: Low back pain Presentation: 05/16 14:24 Chief complaint: Patient states: was assisting nephew with special needs and he went em spastic and pulled her with him and hurt lower back 3 days ago, reports radiating into marylin. legs, pain is getting worse. Coronavirus screen: Client denies travel out of the [place] in the last 14 days. Ebola Screen: Patient negative for fever greater than or equal to 101.5 degrees Fahrenheit, and additional compatible Ebola Virus Disease symptoms Patient denies exposure to infectious person. Patient denies travel to an Ebola-affected area in the 21 days before illness onset. No symptoms or risks identified at this time. Initial Sepsis Screen: Does the patient meet any 2 criteria? No. Patient's initial sepsis screen is negative. Does the patient have a suspected source of infection? No. Patient's initial sepsis screen is negative. Risk Assessment: Do you want to hurt yourself or someone else? Patient reports no desire to harm self or others. Onset of symptoms was May 13, 2020. 14:24 Method Of Arrival: Ambulatory em 14:24 Acuity: AMBROSIO 4 em Historical: - Allergies: 14:27 Codeine; em 14:27 Sulfa (Sulfonamide Antibiotics); em - PMHx: 14:27 acid reflux; Asthma; breast CA-2005; Diabetes - IDDM; Hyperlipidemia; Rheumatoid em Arthritis; ulcerative colitis; - Immunization history:: Adult Immunizations up to date. - Social history:: Smoking status: Patient denies any tobacco usage or history of. Screenin:30 Abuse screen: Denies threats or abuse. Nutritional screening: No deficits noted. aa5 Tuberculosis screening: No symptoms or risk factors identified. Fall Risk Fall in past 12 months (25 points). Ambulatory Aid- Crutches/Cane/Walker (15 pts). Total Ramos Fall Scale indicates High Risk Score (45 or more points). Fall prevention measures have been instituted. Side Rails Up X 2 Placed Close to Nursing Station. Assessment: 15:30 General: Appears uncomfortable, Behavior is calm, cooperative. Pain: Complains of pain aa5 in low back area Pain currently is 8 out of 10 on a pain scale. Quality of pain is described as sharp, shooting, Is continuous, Aggravated by increased activity, repositioning. Neuro: Level of Consciousness is awake, alert, obeys commands, Oriented to person, place, time, situation. Cardiovascular: Patient's skin is warm and dry. Respiratory: Airway is patent Respiratory effort is even, unlabored, Respiratory pattern is regular, symmetrical. GI: No signs and/or symptoms were reported involving the gastrointestinal system. : No signs and/or symptoms were reported regarding the genitourinary system. EENT: No signs and/or symptoms were reported regarding the EENT system. Derm: Skin is pink, warm \T\ dry. Musculoskeletal: Range of motion: intact in all extremities. 16:19 Reassessment: Patient is alert, oriented x 3, equal unlabored respirations, skin aa5 warm/dry/pink. Patient states feeling better. 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 . 16:48 Reassessment: Patient is alert, oriented x 3, equal unlabored respirations, skin aa5 warm/dry/pink. Patient states feeling better. Vital Signs: 14:24 BP 145 / 86; Pulse 72; Resp 18; Temp 98.3(O); Pulse Ox 97% on R/A; Weight 88.45 kg; em Height 5 ft. 3 in. (160.02 cm); Pain 7/10; 16:20 BP 128 / 58; Pulse 72; Resp 14 S; Pulse Ox 95% on R/A; Pain 4/10; aa5 14:24 Body Mass Index 34.54 (88.45 kg, 160.02 cm) em ED Course: 14:02 Patient arrived in ED. ag5 14:26 Triage completed. em 14:27 Arm band placed on. em 14:42 Laura Hickman FNP-C is PHCP. kb 14:42 Braxton Jennings MD is Attending Physician. kb 14:56 CT Lumbar Spine Wo Con In Process Unspecified. EDMS 15:07 Vivian Givens, RN is Primary Nurse. aa5 15:30 Patient has correct armband on for positive identification. Bed in low position. Call aa5 light in reach. Side rails up X2. 16:48 Patient did not have IV access during this emergency room visit. aa5 16:48 No provider procedures requiring assistance completed. aa5 Administered Medications: 15:39 Drug: Lidocaine Solution (4%) 1 patches Route: Topical; Site: affected area; em 15:40 Drug: Zofran (Ondansetron) 4 mg Route: PO; em 16:20 Follow up: Response: No adverse reaction aa5 15:42 Drug: TORadol 30 mg Route: IM; Site: left deltoid; em 16:21 Follow up: Response: No adverse reaction aa5 15:43 Drug: morphine 4 mg Route: IM; Site: left deltoid; em 16:21 Follow up: Response: No adverse reaction aa5 Outcome: 16:20 Discharge ordered by . saranya 16:48 Discharged to home ambulatory. aa5 16:48 Condition: improved 16:48 Discharge instructions given to patient, Instructed on discharge instructions, follow up and referral plans. medication usage, Demonstrated understanding of instructions, follow-up care, medications, Prescriptions given X 2. 16:51 Patient left the ED. aa5 Signatures: Dispatcher [employer] EDLaura Esquivel, CHANNEL DIRECTOR-C CHANNEL DIRECTOR-Ravinder López, RN RN Vivian Givens RN RN aa5 Marcelle Rausch ag5 Corrections: (The following items were deleted from the chart) 16:20 16:19 Reassessment: Patient is alert, oriented x 3, equal unlabored respirations, skin aa5 warm/dry/pink. Patient states feeling better. aa5
--- NOTE | 2020-05-16 16:21 | EDPHYS ---
Physician Documentation [facility] Name: Noreen Xiao Age: 69 yrs Sex: Female : 1950 Arrival Date: 05/16/2020 Time: 14:02 Bed 28 Private MD: FLORI Physician Braxton Jennings HPI: 05/16 16:33 This 69 yrs old Female presents to ER via Ambulatory with complaints of Low kb Back Pain. 16:33 The patient presents with pain that is acute. The symptoms are located in the low back. kb The pain does not radiate. The problem was sustained when lifting. Onset: The symptoms/episode began/occurred 3 day(s) ago. Modifying factors: The patient symptoms are alleviated by nothing, the patient symptoms are aggravated by any movement. Associated signs and symptoms: The patient has no apparent associated signs or symptoms. Severity of symptoms: At their worst the symptoms were moderate, in the emergency department the symptoms are unchanged. The patient has not experienced similar symptoms in the past. The patient has not recently seen a physician. Pt reports she always has a dull ache in her low back. States she was lifting her nephew and he is spastic so he caused her to pull something in her low back. Now having sharp pains to low back. Denies bowel or bladder incontinence, numbness, tingling.. Historical: - Allergies: 14:27 Codeine; em 14:27 Sulfa (Sulfonamide Antibiotics); em - PMHx: 14:27 acid reflux; Asthma; breast CA-2005; Diabetes - IDDM; Hyperlipidemia; Rheumatoid em Arthritis; ulcerative colitis; - Immunization history:: Adult Immunizations up to date. - Social history:: Smoking status: Patient denies any tobacco usage or history of. ROS: 15:39 Constitutional: Negative for fever, chills, and weight loss, Cardiovascular: Negative kb for chest pain, palpitations, and edema, Respiratory: Negative for shortness of breath, cough, wheezing, and pleuritic chest pain, Abdomen/GI: Negative for abdominal pain, nausea, vomiting, diarrhea, and constipation, : Negative for injury, bleeding, discharge, and swelling, MS/Extremity: Negative for injury and deformity, Skin: Negative for injury, rash, and discoloration, Neuro: Negative for headache, weakness, numbness, tingling, and seizure. 15:39 Back: Positive for pain at rest, pain with movement, of the low back area. Exam: 16:33 Constitutional: This is a well developed, well nourished patient who is awake, alert, kb and in no acute distress. Head/Face: Normocephalic, atraumatic. Chest/axilla: Normal chest wall appearance and motion. Nontender with no deformity. No lesions are appreciated. Cardiovascular: Regular rate and rhythm with a normal S1 and S2. No gallops, murmurs, or rubs. Normal PMI, no JVD. No pulse deficits. Respiratory: Lungs have equal breath sounds bilaterally, clear to auscultation and percussion. No rales, rhonchi or wheezes noted. No increased work of breathing, no retractions or nasal flaring. Abdomen/GI: Soft, non-tender, with normal bowel sounds. No distension or tympany. No guarding or rebound. No evidence of tenderness throughout. Skin: Warm, dry with normal turgor. Normal color with no rashes, no lesions, and no evidence of cellulitis. MS/ Extremity: Pulses equal, no cyanosis. Neurovascular intact. Full, normal range of motion. Neuro: Awake and alert, GCS 15, oriented to person, place, time, and situation. Cranial nerves II-XII grossly intact. Motor strength 5/5 in all extremities. Sensory grossly intact. Cerebellar exam normal. Normal gait. 16:33 Back: pain, that is moderate, of the low back area, ROM is painful, with all movement, normal spinal alignment noted. Vital Signs: 14:24 BP 145 / 86; Pulse 72; Resp 18; Temp 98.3(O); Pulse Ox 97% on R/A; Weight 88.45 kg; em Height 5 ft. 3 in. (160.02 cm); Pain 7/10; 16:20 BP 128 / 58; Pulse 72; Resp 14 S; Pulse Ox 95% on R/A; Pain 4/10; aa5 14:24 Body Mass Index 34.54 (88.45 kg, 160.02 cm) em MDM: 15:04 Patient medically screened. kb 16:20 Data reviewed: vital signs, nurses notes. Data interpreted: Pulse oximetry: on room air kb is 97 %. Interpretation: normal. Counseling: I had a detailed discussion with the patient and/or guardian regarding: the historical points, exam findings, and any diagnostic results supporting the discharge/admit diagnosis, radiology results, the need for outpatient follow up, a family practitioner, to return to the emergency department if symptoms worsen or persist or if there are any questions or concerns that arise at home. Response to treatment: the patient's symptoms have markedly improved after treatment. 05/16 14:43 Order name: CT Lumbar Spine Wo Con; Complete Time: 15:16 kb Administered Medications: 15:39 Drug: Lidocaine Solution (4%) 1 patches Route: Topical; Site: affected area; em 15:40 Drug: Zofran (Ondansetron) 4 mg Route: PO; em 16:20 Follow up: Response: No adverse reaction aa5 15:42 Drug: TORadol 30 mg Route: IM; Site: left deltoid; em 16:21 Follow up: Response: No adverse reaction aa5 15:43 Drug: morphine 4 mg Route: IM; Site: left deltoid; em 16:21 Follow up: Response: No adverse reaction aa5 Disposition: 05/17 10:06 Co-signature as Attending Physician, Braxton Jennings MD I agree with the assessment and albert plan of care. Disposition: 05/16/20 16:20 Discharged to Home. Impression: Low back pain. - Condition is Stable. - Discharge Instructions: Back Injury Prevention, [id number], Back Pain, Adult, [id number]. - Prescriptions for Ibuprofen 800 mg Oral Tablet - take 1 tablet by ORAL route every 8 hours As needed take with food; 30 tablet. Cyclobenzaprine 10 mg Oral Tablet - take 1 tablet by ORAL route every 8 hours As needed; 21 tablet. - Medication Reconciliation Form, Thank You Letter, Antibiotic Education, Prescription Opioid Use form. - Follow up: Emergency Department; When: As needed; Reason: Worsening of condition. Follow up: Private Physician; When: 2 - 3 days; Reason: Recheck today's complaints, Continuance of care, Re-evaluation by your physician. Signatures: Dispatcher [employer] Laura Adam, CAD DESIGNER DRAFTER-C Braxton Barajas MD MD cha Munoz, Edgar, RN RN Vivian Baldwin RN RN aa5 Corrections: (The following items were deleted from the chart) 05/16 16:36 16:33 Pt reports she always has a dull ache in her low back. States she was lifting her kb nephew and he is spastic so he caused her to pull something in her low back. Now having sharp pains to low back. Denies bowel or bladder incontinence. . kb 16:51 16:20 05/16/2020 16:20 Discharged to Home. Impression: Low back pain. Condition is aa5 Stable. Forms are Medication Reconciliation Form, Thank You Letter, Antibiotic Education, Prescription Opioid Use. Follow up: Emergency Department; When: As needed; Reason: Worsening of condition. Follow up: Private Physician; When: 2 - 3 days; Reason: Recheck today's complaints, Continuance of care, Re-evaluation by your physician. kb
[2020-05-18 03:32] VITALS: TEMP 98.3
[2020-05-18 03:33] VITALS: BP 128/58; O2SAT 95
== END 2020-05-16 16:51 | disposition home or self-care (01) ==
LOC: ER 14:00
DX: M54.5 Low back pain (principal); I10 Essential (primary) hypertension; Z88.2 Allergy status to sulfonamides; Z88.5 Allergy status to narcotic agent
CPT/HCPCS: 72131; 96372; 99283

== ENCOUNTER 2022-11-10 11:38 | Emergency (ER) | payer OTHER ==
--- OUTSIDE RECORDS SUMMARY | 2022-11-10 11:42 | XMS REPORT | Continuity of Care Document ---
:1950 Author Organization [facility] t Address [address] [place] [address] [address] [place] [address] Care Team Providers Name Role Phone Mariola Skelton Attending Clinician Unavailable Payers Payer Name Policy Type Policy Number Effective Date Expiration Date Tanika barajas [facility] [employer] 1 [id number] 2020 Common TRS/ERS MCR PPO 00:00:00 [facility] MEDICARE NOVITAS MB [id number] [facility] MEDICARE NOVITAS MB [id number] [facility] Problems Condition Condition Condition Status Onset Resolution Last Treating Co mments Source Name Details Category Date Date Treatment Clinician Date [id number] Pain in Problem Active Comm on [id number] joint of [facility] left hand [facility] [id number] Trigger Problem Active Commo n finger, [facility] left - [facility] middle finger [facility] [id number] Strain of Problem Active Com mon right [facility] shoulder, - [facility] initial [facility] [id number] Acute pain Problem Active Com mon of right [facility] shoulder [facility] [id number] Arthritis Problem Active Co mmon [id number] of right [facility] knee [facility] [id number] Sprain of Problem Active Co mmon [id number] unspecifie Spiri t d site [facility] [id number] Subacromia Problem Active C ommon [id number] l bursitis Spirit of right - [facility] shoulder joint [facility] [id number] Primary Problem Active Comm on osteoarthr Spirit itis of - [facility] right knee [facility] Allergies, Adverse Reactions, Alerts Allergy Allergy Status Severity Reaction(s) Onset Inactive Treating Comm ents Source Name Type Date Date Clinician 0 Drug Active Unknown Common allergy [facility] codeine codeine Active Unknown Common [facility] Social History Social Habit Start Date Stop Date Quantity Comments Source History of Tobacco Use Co mmon [facility] Sex Assigned At Com mon [facility] Smoking Status Start Date Stop Date Source Never Smoker [facility] Medications Ordered Filled Start Stop Current Ordering Indication Dosage Frequency Signature Comments Components Source Medication Medication Date Date Medication? Clinician (SIG) Name Name Synvisc Synvisc No 16mg Common 01-30 Spirit 00:00: - [facility] Synvisc Synvisc 0 No 16mg Common 01-23 Spirit 00:00: - [facility] Synvisc Synvisc 0 No 16mg Common 01-16 Spirit 00:00: - [facility] Bupivicaine Bupivicaine 2021-0 No 2.5mg Common Mccausland Mccausland 01-16 Spirit 00:00: - [facility] Kenalog Kenalog 2021-0 No 40mg Common (Triamcinol (Triamcinol 8-18 S pirit one) one) 00:00: - [facility] Bupivicaine Bupivicaine 2021-0 No 2.5mg Common Mccausland Mccausland 01-16 Spirit 00:00: - [facility] Kenalog Kenalog 2021-0 No 40mg Common (Triamcinol (Triamcinol 8-18 S pirit one) one) 00:00: - [facility] Synvisc Synvisc 0 No 16mg Common 18 Spirit 00:00: - [facility] Synvisc Synvisc 2021-0 No 16mg Common 01-08 Spirit 00:00: - [facility] Synvisc Synvisc 2021-0 No 16mg Common 01-08 Spirit 00:00: - [facility] Bupivicaine Bupivicaine 2020-0 No 2.5mg Common Mccausland Mccausland 9 Spirit 00:00: - [facility] 00 [facility] Depo-Medrol Depo-Medrol 0 No 40mg Common (Methylpred (Methylpred 9-02 S pirit nisolone) nisolone) 00:00: - C HI 40mg 40mg 00 [facility] Bupivicaine Bupivicaine 2020-0 No 2.5mg Common Mccausland Mccausland 01-31 Spirit 00:00: - [facility] 00 [facility] Depo-Medrol Depo-Medrol 0 No 40mg Common (Methylpred (Methylpred 9-02 S pirit nisolone) nisolone) 00:00: - C HI 40mg 40mg 00 [facility] Depo-Medrol Depo-Medrol 0 No 40mg Common (Methylpred (Methylpred 9-02 S pirit nisolone) nisolone) 00:00: - C HI 40mg 40mg 00 [facility] Bupivicaine Bupivicaine 2020-0 No 2.5mg Common Mccausland Mccausland 01-31 Spirit 00:00: - [facility] Bupivicaine Bupivicaine 2020-0 No 2.5mg Common Mccausland Mccausland 01-31 Spirit 00:00: - [facility] Depo-Medrol Depo-Medrol 0 No 40mg Common (Methylpred (Methylpred 9-02 S pirit nisolone) nisolone) 00:00: - C HI 40mg 40mg 00 [facility] Diclofenac Diclofenac 2020-0 2020- No Diclofenac Sodium 1 % Sodium 1 % 01-31 Sodium 1 % 00:00: 00:00 00 :00 Diclofenac Diclofenac 2020-0 2020- No Diclofenac Sodium 1 % Sodium 1 % 01-31 Sodium 1 % 00:00: 00:00 00 :00 Bupivicaine Bupivicaine 2020-0 No 2.5mg Common Mccausland Mccausland 3-11 Spirit 00:00: - [facility] Kenalog Kenalog 2020-0 No 40mg Common (Triamcinol (Triamcinol 3-11 S pirit one) one) 00:00: - [facility] 00 [facility] Bupivicaine Bupivicaine 2020-0 No 2.5mg Common Mccausland Mccausland 3-11 Spirit 00:00: - [facility] 00 [facility] Kenalog Kenalog 2020-0 No 40mg Common (Triamcinol (Triamcinol 3-11 S pirit one) one) 00:00: - [facility] 00 [facility] Bupivicaine Bupivicaine 2020-0 No 2.5mg Common Mccausland Mccausland 3-11 Spirit 00:00: - [facility] 00 [facility] Kenalog Kenalog 2020-0 No 40mg Common (Triamcinol (Triamcinol 3-11 S pirit one) one) 00:00: - [facility] Bupivicaine Bupivicaine 2020-0 No 2.5mg Common Mccausland Mccausland 3-11 Spirit 00:00: - [facility] Kenalog Kenalog 2020-0 No 40mg Common (Triamcinol (Triamcinol 3-11 S pirit one) one) 00:00: - [facility] 00 [facility] Bupivicaine Bupivicaine 2018-1 No 5mL Common Mccausland Mccausland 0-18 Spirit 00:00: - [facility] 00 [facility] Depo-Medrol Depo-Medrol 2018- No 1mL Common (Methylpred (Methylpred 0-18 S pirit nisolone) nisolone) 00:00: - C HI 40mg 40mg 00 [facility] Bupivicaine Bupivicaine 2018- No 5mL Common Mccausland Mccausland 0-18 Spirit 00:00: - [facility] 00 [facility] Depo-Medrol Depo-Medrol 2018- No 1mL Common (Methylpred (Methylpred 0-18 S pirit nisolone) nisolone) 00:00: - C HI 40mg 40mg 00 [facility] Depo-Medrol Depo-Medrol 2018- No 1mL Common (Methylpred (Methylpred 0-18 S pirit nisolone) nisolone) 00:00: - C HI 40mg 40mg 00 [facility] Bupivicaine Bupivicaine 2018-1 No 5mL Common Mccausland Mccausland 0-18 Spirit 00:00: - [facility] Bupivicaine Bupivicaine 2019-1 No 5mL Common Mccausland Mccausland 0-18 Spirit 00:00: - [facility] 00 [facility] Depo-Medrol Depo-Medrol 2019-1 No 1mL Common (Methylpred (Methylpred 0-18 S pirit nisolone) nisolone) 00:00: - C HI 40mg 40mg 00 [facility] Betamethaso Betamethaso 2019-0 No 1mL Common ne Sodium ne Sodium 6-04 Spiri t Phosphate Phosphate 00:00: - C HI 00 [facility] LIDOCAINE LIDOCAINE 2019-0 No 10mg Com mon HCL 10MG/ML HCL 10MG/ML 6-04 S pirit 00:00: - [facility] 00 [facility] Betamethaso Betamethaso 2019-0 No 1mL Common ne Sodium ne Sodium 6-04 Spiri t Phosphate Phosphate 00:00: - C HI 00 [facility] LIDOCAINE LIDOCAINE 2019-0 No 10mg Com mon HCL 10MG/ML HCL 10MG/ML 6-04 S pirit 00:00: - [facility] 00 [facility] LIDOCAINE LIDOCAINE 2019-0 No 10mg Com mon HCL 10MG/ML HCL 10MG/ML 6-04 S pirit 00:00: - [facility] 00 [facility] Betamethaso Betamethaso 2019-0 No 1mL Common ne Sodium ne Sodium 6-04 Spiri t Phosphate Phosphate 00:00: - C HI 00 [facility] LIDOCAINE LIDOCAINE 2019-0 No 10mg Com mon HCL 10MG/ML HCL 10MG/ML 6-04 S pirit 00:00: - [facility] Betamethaso Betamethaso 2019-0 No 1mL Common ne Sodium ne Sodium 6-04 Spiri t Phosphate Phosphate 00:00: - C HI 00 [facility] Ezetimibe Ezetimibe No Ezetimibe Vitamin D Vitamin D No Vitamin D metFORMIN metFORMIN No 1{table QID metFORMIN HCl 850 MG HCl 850 MG t_with_ HCl 850 MG a_meal} NovoLOG NovoLOG No NovoLOG FlexPen 100 FlexPen 100 FlexPen UNIT/ML UNIT/ML 100 UNIT/ML Rosuvastati Rosuvastati No Rosuvastat n Calcium n Calcium in Calcium Aspir-81 Aspir-81 No Aspir-81 Azithromyci Azithromyci No Azithromyc n n in Co Q 10 Co Q 10 No Co Q 10 methylPREDN methylPREDN No methylPRED ISolone ISolone NISolone NovoFine NovoFine No NovoFine 32G X 6 MM 32G X 6 MM 32G X 6 MM Levemir Levemir No Levemir FlexTouch FlexTouch FlexTouch 100 UNIT/ML 100 UNIT/ML 100 UNIT/ML Ibuprofen Ibuprofen No Ibuprofen Cyclobenzap Cyclobenzap No Cyclobenza rine HCl rine HCl burke HCl Krill Oil Krill Oil No Krill Oil Whiteriver-3 Whiteriver-3 Whiteriver-3 Ciprofloxac Ciprofloxac No Ciprofloxa in HCl in HCl chandler HCl Nexletol Nexletol No Nexletol Montelukast Montelukast No Montelukas Sodium Sodium t Sodium Ezetimibe Ezetimibe No Ezetimibe Vitamin D Vitamin D No Vitamin D metFORMIN metFORMIN No 1{table QID metFORMIN HCl 850 MG HCl 850 MG t_with_ HCl 850 MG a_meal} NovoLOG NovoLOG No NovoLOG FlexPen 100 FlexPen 100 FlexPen UNIT/ML UNIT/ML 100 UNIT/ML Rosuvastati Rosuvastati No Rosuvastat n Calcium n Calcium in Calcium Azithromyci Azithromyci No Azithromyc n n in Vitamin D Vitamin D No Vitamin D Ezetimibe Ezetimibe No Ezetimibe Rosuvastati Rosuvastati No Rosuvastat n Calcium n Calcium in Calcium Aspir-81 Aspir-81 No Aspir-81 Krill Oil Krill Oil No Krill Oil Whiteriver-3 Whiteriver-3 Whiteriver-3 Co Q 10 Co Q 10 No Co Q 10 NovoFine NovoFine No NovoFine 32G X 6 MM 32G X 6 MM 32G X 6 MM methylPREDN methylPREDN No methylPRED ISolone ISolone NISolone Cyclobenzap Cyclobenzap No Cyclobenza rine HCl rine HCl burke HCl Levemir Levemir No Levemir FlexTouch FlexTouch FlexTouch 100 UNIT/ML 100 UNIT/ML 100 UNIT/ML Ibuprofen Ibuprofen No Ibuprofen Ciprofloxac Ciprofloxac No Ciprofloxa in HCl in HCl chandler HCl Nexletol Nexletol No Nexletol NovoLOG NovoLOG No NovoLOG FlexPen 100 FlexPen 100 FlexPen UNIT/ML UNIT/ML 100 UNIT/ML metFORMIN metFORMIN No 1{table QID metFORMIN HCl 850 MG HCl 850 MG t_with_ HCl 850 MG a_meal} Montelukast Montelukast No Montelukas Sodium Sodium t Sodium Co Q 10 Co Q 10 No Co Q 10 Ezetimibe Ezetimibe No Ezetimibe Rosuvastati Rosuvastati No Rosuvastat n Calcium n Calcium in Calcium Ciprofloxac Ciprofloxac No Ciprofloxa in HCl in HCl chandler HCl Aspir-81 Aspir-81 No Aspir-81 NovoFine NovoFine No NovoFine 32G X 6 MM 32G X 6 MM 32G X 6 MM Nexletol Nexletol No Nexletol Ibuprofen Ibuprofen No Ibuprofen Vitamin D Vitamin D No Vitamin D Azithromyci Azithromyci No Azithromyc n n in methylPREDN methylPREDN No methylPRED ISolone ISolone NISolone Krill Oil Krill Oil No Krill Oil Whiteriver-3 Whiteriver-3 Whiteriver-3 Cyclobenzap Cyclobenzap No Cyclobenza rine HCl rine HCl burke HCl Montelukast Montelukast No Montelukas Sodium Sodium t Sodium Levemir Levemir No Levemir FlexTouch FlexTouch FlexTouch 100 UNIT/ML 100 UNIT/ML 100 UNIT/ML metFORMIN metFORMIN No 1{table QID metFORMIN HCl 850 MG HCl 850 MG t_with_ HCl 850 MG a_meal} NovoLOG NovoLOG No NovoLOG FlexPen 100 FlexPen 100 FlexPen UNIT/ML UNIT/ML 100 UNIT/ML Aspir-81 Aspir-81 No Aspir-81 metFORMIN metFORMIN No 1{table QID metFORMIN HCl 850 MG HCl 850 MG t_with_ HCl 850 MG a_meal} Rosuvastati Rosuvastati No Rosuvastat n Calcium n Calcium in Calcium Vitamin D Vitamin D No Vitamin D Cyclobenzap Cyclobenzap No Cyclobenza rine HCl rine HCl burke HCl NovoLOG NovoLOG No NovoLOG FlexPen 100 FlexPen 100 FlexPen UNIT/ML UNIT/ML 100 UNIT/ML Ibuprofen Ibuprofen No Ibuprofen Ciprofloxac Ciprofloxac No Ciprofloxa in HCl in HCl chandler HCl Montelukast Montelukast No Montelukas Sodium Sodium t Sodium Levemir Levemir No Levemir FlexTouch FlexTouch FlexTouch 100 UNIT/ML 100 UNIT/ML 100 UNIT/ML Co Q 10 Co Q 10 No Co Q 10 NovoFine NovoFine No NovoFine 32G X 6 MM 32G X 6 MM 32G X 6 MM Nexletol Nexletol No Nexletol methylPREDN methylPREDN No methylPRED ISolone ISolone NISolone Krill Oil Krill Oil No Krill Oil Whiteriver-3 Whiteriver-3 Whiteriver-3 Ezetimibe Ezetimibe No Ezetimibe Azithromyci Azithromyci No Azithromyc n n in Aspir-81 Aspir-81 No Aspir-81 metFORMIN metFORMIN No 1{table QID metFORMIN HCl 850 MG HCl 850 MG t_with_ HCl 850 MG a_meal} Rosuvastati Rosuvastati No Rosuvastat n Calcium n Calcium in Calcium Vitamin D Vitamin D No Vitamin D Cyclobenzap Cyclobenzap No Cyclobenza rine HCl rine HCl burke HCl NovoLOG NovoLOG No NovoLOG FlexPen 100 FlexPen 100 FlexPen UNIT/ML UNIT/ML 100 UNIT/ML Ibuprofen Ibuprofen No Ibuprofen Ciprofloxac Ciprofloxac No Ciprofloxa in HCl in HCl chandler HCl Montelukast Montelukast No Montelukas Sodium Sodium t Sodium Levemir Levemir No Levemir FlexTouch FlexTouch FlexTouch 100 UNIT/ML 100 UNIT/ML 100 UNIT/ML Co Q 10 Co Q 10 No Co Q 10 NovoFine NovoFine No NovoFine 32G X 6 MM 32G X 6 MM 32G X 6 MM Nexletol Nexletol No Nexletol methylPREDN methylPREDN No methylPRED ISolone ISolone NISolone Krill Oil Krill Oil No Krill Oil Whiteriver-3 Whiteriver-3 Whiteriver-3 Ezetimibe Ezetimibe No Ezetimibe Azithromyci Azithromyci No Azithromyc n n in Krill Oil Krill Oil Yes Dinh not Com mon Whiteriver-3 Whiteriver-3 Liu defined Spir it - [facility] Co Q 10 Co Q 10 Yes Dinh not Common Liu defined Spirit - [facility] Metformin Metformin Yes Dinh 1 tablet Common HCl HCl Liu with a Spirit meal - [facility] Vitamin D Vitamin D Yes Dinh not Com mon Noe defined Spirit - [facility] NovoFine NovoFine Yes Dinh not Commo n Noe defined Spirit - [facility] NovoLog NovoLog Yes Dinh not Common Flexpen Flexpen Liu defined Spir it - [facility] Levemir Levemir Yes Dinh not Common FlexTouch FlexTouch Liu defined Spirit - [facility] Aspir-81 Aspir-81 No Aspir-81 Azithromyci Azithromyci No Azithromyc n n in Co Q 10 Co Q 10 No Co Q 10 methylPREDN methylPREDN No methylPRED ISolone ISolone NISolone NovoFine NovoFine No NovoFine 32G X 6 MM 32G X 6 MM 32G X 6 MM Levemir Levemir No Levemir FlexTouch FlexTouch FlexTouch 100 UNIT/ML 100 UNIT/ML 100 UNIT/ML Ibuprofen Ibuprofen No Ibuprofen Cyclobenzap Cyclobenzap No Cyclobenza rine HCl rine HCl burke HCl Krill Oil Krill Oil No Krill Oil Whiteriver-3 Whiteriver-3 Whiteriver-3 Ciprofloxac Ciprofloxac No Ciprofloxa in HCl in HCl chandler HCl Nexletol Nexletol No Nexletol Montelukast Montelukast No Montelukas Sodium Sodium t Sodium Immunizations Ordered Immunization Filled Immunization Date Status Commen ts Source Name Name Depo-Medrol Depo-Medrol 2021-01-31 Completed Common Spiri t (Methylprednisolone) (Methylprednisolone) 10:18:00 [facility] 40mg 40mg [facility] Bupivicaine Mccausland Bupivicaine Mccausland 2021-01-31 Completed Common [facility] 10:18:00 [facility] Depo-Medrol Depo-Medrol 2021-01-31 Completed Common Spiri t (Methylprednisolone) (Methylprednisolone) 10:18:00 [facility] 40mg 40mg [facility] Bupivicaine Mccausland Bupivicaine Mccausland 2021-01-31 Completed Common [facility] 10:18:00 [facility] Bupivicaine Mccausland Bupivicaine Mccausland 2020-08-09 Completed Common [facility] 13:38:00 [facility] Bupivicaine Mccausland Bupivicaine Mccausland 2020-08-09 Completed Common [facility] 13:38:00 [facility] Kenalog Kenalog 2020-08-09 Completed Common [facility] (Triamcinolone) (Triamcinolone) 13:37:00 [facility] Kenalog Kenalog 2020-08-09 Completed [facility] (Triamcinolone) (Triamcinolone) 13:37:00 [facility] Bupivicaine Mccausland Bupivicaine Mccausland 2019-03-18 Completed Common [facility] 08:49:00 [facility] Bupivicaine Mccausland Bupivicaine Mccausland 2019-03-18 Completed Common [facility] 08:49:00 [facility] Depo-Medrol Depo-Medrol 2019-03-18 Completed Common Sp[facility] t (Methylprednisolone) (Methylprednisolone) 08:48:00 [facility] 40mg 40mg [facility] Depo-Medrol Depo-Medrol 2019-03-18 Completed Common [facility] t (Methylprednisolone) (Methylprednisolone) 08:48:00 [facility] 40mg 40mg [facility] Betamethasone Sodium Betamethasone Sodium 2018-11-02 Completed [facility] Phosphate Phosphate 10:42:00 [facility] LIDOCAINE HCL 10MG/ML LIDOCAINE HCL 2018-11-02 Completed [facility] 10MG/ML 10:42:00 [facility] Betamethasone Sodium Betamethasone Sodium 2018-11-02 Completed [facility] Phosphate Phosphate 10:42:00 [facility] LIDOCAINE HCL 10MG/ML LIDOCAINE HCL 2018-11-02 Completed [facility] 10MG/ML 10:42:00 [facility] Vital Signs Vital Name Observation Time Observation Value Comments Source height 2022-01-30 13:45:00 63 [in_i] [facility] weight 2022-01-30 13:45:00 177 [lb_av] [facility] temperature 2022-01-30 13:45:00 98.2 [degF] [facility] bmi 2022-01-30 13:45:00 31.35 kg/m2 [facility] blood pressure 2022-01-30 13:45:00 126 mm[Hg] [facility] - systolic [facility] blood pressure 2022-01-30 13:45:00 76 mm[Hg] [facility] - diastolic [facility] height 2022-01-16 14:45:00 63 [in_i] Common S pirit - [facility] weight 2022-01-16 14:45:00 183 [lb_av] Common S pirit - [facility] temperature 2022-01-16 14:45:00 97.4 [degF] Common S pirit - [facility] bmi 2022-01-16 14:45:00 32.41 kg/m2 Common S pirit - [facility] blood pressure 2022-01-16 14:45:00 126 mm[Hg] [facility] - systolic [facility] blood pressure 2022-01-16 14:45:00 82 mm[Hg] [facility] - diastolic [facility] height 2021-12-09 09:45:00 63 [in_i] Common S pirit - [facility] weight 2021-12-09 09:45:00 183 [lb_av] Common S pirit - [facility] temperature 2021-12-09 09:45:00 97.3 [degF] Common S pirit - [facility] bmi 2021-12-09 09:45:00 32.41 kg/m2 Common S pirit - [facility] blood pressure 2021-12-09 09:45:00 116 mm[Hg] [facility] - systolic [facility] blood pressure 2021-12-09 09:45:00 64 mm[Hg] [facility] - diastolic [facility] height 2021-01-31 09:30:00 63 [in_i] Common S pirit - [facility] weight 2021-01-31 09:30:00 184 [lb_av] Common S pirit - [facility] bmi 2021-01-31 09:30:00 32.59 kg/m2 Common S pirit - [facility] blood pressure 2021-01-31 09:30:00 123 mm[Hg] Common [facility] - systolic [facility] blood pressure 2021-01-31 09:30:00 71 mm[Hg] Common [facility] - diastolic [facility] Procedures This patient has no known procedures. Encounters Start End Encounter Admission Attending Care Care Encounter Source Date/Time Date/Time Type Type Clinicians Facility Department ID 2022-10-14 Outpatient [facility], STLMLC STLMLC [id number] Common 15:24:01 Mariola [id number] [facility] 2022-01-29 Outpatient [facility], STLMLC STLMLC [id number] Common 16:33:00 Mariola [id number] [facility] 2021-12-09 Outpatient [facility], STLMLC STLMLC [id number] Common 16:53:00 Mariola [id number] [facility] 2021-12-03 Outpatient STLMLC STLMLC [id number] Common 09:45:01 [facility] 2021-06-26 Outpatient STLMLC STLMLC [id number] Common 12:40:52 [id number] [facility] 2021-06-26 Outpatient STLMLC STLMLC [id number] Common 12:39:21 [id number] [facility] 2021-06-26 Outpatient STLMLC STLMLC [id number] Common 12:35:25 [id number] [facility] 2022-01-30 2022-01-30 (IN/ASP) STLMLC STLMLC [id number] C ommon 00:00:00 00:00:00 INJ ASP [facility] 2022-01-16 2022-01-16 (IN/ASP) STLMLC STLMLC [id number] C ommon 00:00:00 00:00:00 INJ ASP [facility] 2021-12-16 2021-12-16 (TEL) STLMLC STLMLC [id number] Co mmon 00:00:00 00:00:00 [facility] 2021-12-09 2021-12-09 OFFICE STLMLC STLMLC [id number] Co mmon 00:00:00 00:00:00 VISIT [facility] PT - [facility] LEVEL 4 [facility] 2021-02-06 2021-02-06 (TEL) STLMLC STLMLC [id number] Co mmon 00:00:00 00:00:00 [facility] 2021-01-31 2021-01-31 OFFICE STLMLC STLMLC [id number] Co mmon 00:00:00 00:00:00 VISIT [facility] PT - CHI LEVEL 4 [facility] 2020-09-20 2020-09-20 Outpatient STLMLC STLMLC [id number] Common 00:00:00 00:00:00 [facility] 2020-08-09 2020-08-09 Outpatient STLMLC STLMLC [id number] Common 00:00:00 00:00:00 [facility] 2020-07-30 2020-07-30 Outpatient STLMLC STLMLC [id number] Common 00:00:00 00:00:00 [facility] 2019-03-18 2019-03-18 [id number] Common 08:00:00 08:00:00 [facility] Results This patient has no known results.
[2022-11-10] MEDS ORDERED: KETOROLAC 30 MG/ML INJ ONE (12:19)
[2022-11-10] MEDS ORDERED: FAMOTIDINE 20 MG/2 ML VIAL IV ONE (12:19)
[2022-11-10 12:22] LABS: Absolute Lymphocytes (CBC) 1.4 K/uL (0.7-4.9); Hematocrit 42.5 % (36.0-45.0); Lymphocytes % 14.7 % (15.3-44.8); MCV 91.8 fL (80-100); RBC Red Blood Cell Count 4.63 M/uL (3.86-4.86)
[2022-11-10 12:37] LABS: Albumin 3.7 g/dL (3.4-5.0); Bilirubin Total 0.7 mg/dL (0.2-1.0); Potassium 3.8 mEq/L (3.5-5.1); Protein, Total 7.3 g/dL (6.4-8.2)
--- NOTE | 2022-11-10 13:12 | RAD REPORT ---
EXAM DESCRIPTION: CT - Abdomen Pelvis W Contrast - 11/10/2022 12:52 pm CLINICAL HISTORY: Abdominal pain COMPARISON: September 2022 TECHNIQUE: Computed axial tomography of the abdomen pelvis was obtained. 100 cc Isovue-300 was admin istered intravenously. Oral contrast was not requested which limits evaluation of bowel and appendix All CT scans are performed using dose optimization technique as appropriate and may include automated exposure control or mA/KV adjustment according to patient size. FINDINGS: The liver, spleen, pancreas, adrenal and kidneys appear unremarkable. There is no evidence of diverticulitis. Cholecystectomy. Hysterectomy. No adnexal mass The appendix is borderline enlarged. No significant change in the size since the prior exam. No stran ding within the adjacent fat. No significant free fluid. IMPRESSION: Borderline enlargement of the appendix probably is a normal variant for this patient. Th is should be correlated clinically. No acute abnormality is displayed
[2022-11-10 14:10] LABS: Urine Bacteria None Seen /HPF (<20); Urine Bilirubin NEGATIVE (Negative); Urine Blood Negative (Negative); Urine Clarity Clear (Clear); Urine Color Light-Yellow (Yellow); Urine Glucose NEGATIVE (Negative); Urine Mucus 2+ /HPF (None Seen); Urine Protein TRACE (Negative); Urine RBC <5 /HPF (None Seen); Urine Urobilinogen Normal (Normal)
[2022-11-10 14:14] LABS: Specific Gravity > 1.030 (1.005-1.030)
--- NOTE | 2022-11-10 14:27 | EDPHYS ---
Physician Documentation [facility] Name: Noreen Xiao Age: 72 yrs Sex: Female : 1950 Arrival Date: 11/10/2022 Time: 11:38 Bed 6 Private MD: ED Physician George Valdez HPI: 11/10 11:55 This 72 yrs old Female presents to ER via Unassigned with complaints of ms3 Abdominal Pain. 11:55 72-year-old female with past medical history of diabetes, rheumatoid arthritis, asthma ms3 presents for several months of abdominal pain, a knot that she felt in her left lower quadrant 1 month ago. Patient states in August she began hurting her left lower quadrant. Patient was seen by her nurse practitioner and a CT scan was ordered 2 to 3 weeks ago that showed an inflamed appendix. Patient states her pain is currently a 5/10 and aching. Patient denies fevers, nausea, vomiting. Patient denies alleviating or inciting factors.. Historical: - Allergies: 12:04 Codeine; ph 12:04 Sulfa (Sulfonamide Antibiotics); ph - PMHx: 12:04 acid reflux; Asthma; breast CA-2005; Diabetes - IDDM; Hyperlipidemia; Rheumatoid ph Arthritis; ulcerative colitis; - PSHx: 12:04 mastectomy R; ph - Immunization history:: Adult Immunizations unknown. - Social history:: Smoking status: Patient denies any tobacco usage or history of. ROS: 11:55 Constitutional: Negative for fever, and chills. Cardiovascular: Negative for chest ms3 pain, and palpitations. Respiratory: Negative for shortness of breath, cough, wheezing, and pleuritic chest pain. 11:55 MS/Extremity: Negative for injury and deformity, Skin: Negative for injury, rash, and discoloration. 11:55 Abdomen/GI: Positive for abdominal pain. 11:55 All other systems are negative. Exam: 11:55 Constitutional: This is a well developed, well nourished patient who is awake, alert, ms3 and in no acute distress. Neck: Trachea midline, no cervical lymphadenopathy. Supple, full range of motion without nuchal rigidity, or vertebral point tenderness. No Meningismus. Chest/axilla: Normal chest wall appearance and motion. Nontender with no deformity. Cardiovascular: Regular rate and rhythm with a normal S1 and S2. No gallops, murmurs, or rubs. Normal PMI, no JVD. No pulse deficits. Respiratory: Lungs have equal breath sounds bilaterally, clear to auscultation and percussion. No rales, rhonchi or wheezes noted. No increased work of breathing, no retractions or nasal flaring. 11:55 Abdomen/GI: Inspection: abdomen appears normal, Bowel sounds: normal, Palpation: moderate abdominal tenderness, in the left lower quadrant. Vital Signs: 12:02 Resp 18; Temp 97.5; Weight 80.74 kg; Height 5 ft. 3 in. ; ph 12:53 BP 126 / 58; Pulse 67; Resp 18; Pulse Ox 95% on R/A; ko1 13:34 BP 107 / 58; Pulse 72; Resp 18; Pulse Ox 100% ; ko1 12:02 Body Mass Index 31.53 (80.74 kg, 160.02 cm) ph MDM: 11:54 Patient medically screened. ms3 11:55 Differential diagnosis: appendicitis, diverticulitis, gastritis, non-specific abd pain, ms3 pancreatitis. 14:23 Data reviewed: vital signs, nurses notes, lab test result(s). ms3 14:27 I considered the following discharge prescriptions or medication management in the ms3 emergency department Medications were administered in the Emergency Department. See MAR. Counseling: I had a detailed discussion with the patient and/or guardian regarding: the historical points, exam findings, and any diagnostic results supporting the discharge/admit diagnosis, lab results, radiology results, the need for outpatient follow up, to return to the emergency department if symptoms worsen or persist or if there are any questions or concerns that arise at home. Response to treatment: the patient's symptoms have resolved after treatment, and as a result, I will discharge patient. Special discussion: Based on the patient's Hx, exam, and Dx evaluation, there is no indication for emergent surgery or inpatient Tx. It is understood by the patient/guardian that if the Sx's persist or worsen they need to return immediately for re-evaluation. ED course: On reevaluation patient states her symptoms have resolved, patient is without tenderness in the right lower quadrant or left lower quadrant at this time. Patient is tolerating p.o. Patient to follow-up with her primary care physician in 2 to 3 days. Patient understands and agrees with plan. All questions were answered. Return precautions discussed include worsening symptoms, or any other concerns. 11/10 11:55 Order name: CBC with Diff; Complete Time: 13:00 ms3 11/10 11:55 Order name: CMP; Complete Time: 13:00 ms3 11/10 11:55 Order name: Lipase; Complete Time: 13:00 ms3 11/10 11:55 Order name: Urinalysis w/ reflexes; Complete Time: 14:19 ms3 11/10 11:55 Order name: CT Abd/Pelvis - IV Contrast Only; Complete Time: 13:17 ms3 11/10 11:55 Order name: IV Saline Lock; Complete Time: 12:12 ms3 11/10 11:55 Order name: Labs collected and sent; Complete Time: 12:12 ms3 Administered Medications: 12:16 Drug: Famotidine IVP 20 mg Route: IVP; Site: left forearm; ph 12:16 Follow up: Response: No adverse reaction ph 12:16 Drug: TORadol - Ketorolac IVP 10 mg Route: IVP; Site: left forearm; ph 12:16 Follow up: Response: No adverse reaction ph 14:25 CANCELLED (Physician Discretion): amiodarone PO 200 mg PO once ko1 14:26 CANCELLED (Physician Discretion): Furosemide IVP 60 mg IVP once; give over 2 minutes ko1 Disposition Summary: 11/10/22 14:26 Discharge Ordered Location: Home ms3 Condition: Stable ms3 Diagnosis - Lower abdominal pain, unspecified ms3 Discharge Instructions: - Discharge Summary Sheet ms3 - Abdominal Pain, Adult ms3 Forms: - Medication Reconciliation Form ms3 - Thank You Letter ms3 - Antibiotic Education ms3 - Prescription Opioid Use ms3 Signatures: Dispatcher [employer] Krysten Beasley RN RN ph George Valdez DO DO ms3 Tracy Jo RN ko1 Corrections: (The following items were deleted from the chart) 14:24 14:24 Furosemide IVP 60 mg IVP once; give over 2 minutes ordered. ms3 ms3 14:25 14:24 amiodarone PO 200 mg PO once ordered. ms3 ko1 14:30 14:24 Consideration of Admission/Observation Patient was admitted/placed on ms3 observation. ms3 14:30 14:24 Management of patient was discussed with the following: Hospitalist: Discussed ms3 case with Rama. He accepts on behalf of Dr Stafford.. ms3 14:30 14:24 I considered the following discharge prescriptions or medication management in ms3 the emergency department Medications were administered in the Emergency Department. See MAR ms3
--- NOTE | 2022-11-10 14:27 | ER ---
Nurse's Notes [facility] Name: Noreen Xiao Age: 72 yrs Sex: Female : 1950 Arrival Date: 11/10/2022 Time: 11:38 Bed 6 Private MD: Diagnosis: Lower abdominal pain, unspecified Presentation: 11/10 12:02 Chief complaint: Patient states: LLQ pain since August that comes and goes, RUQ pain ph that started yesterday, also reports nausea, diarrhea after eating and urinary frequency/burning. Coronavirus screen: Vaccine status: Patient reports being unvaccinated. Ebola Screen: No symptoms or risks identified at this time. Risk Assessment: Do you want to hurt yourself or someone else? Patient reports no desire to harm self or others. Onset of symptoms was November 10, 2022. 12:02 Method Of Arrival: Ambulatory ph 12:02 Acuity: AMBROSIO 3 ph 14:31 Initial Sepsis Screen: Does the patient meet any 2 criteria? Does the patient have a ko1 suspected source of infection? No. Patient's initial sepsis screen is negative. Triage Assessment: 12:04 General: Appears in no apparent distress. Behavior is calm, cooperative, appropriate ph for age. Pain: Complains of pain in right upper quadrant and left lower quadrant. Neuro: Level of Consciousness is awake, alert, obeys commands, Oriented to person, place, time, situation. Cardiovascular: Capillary refill < 3 seconds in bilateral fingers Patient's skin is warm and dry. Respiratory: Airway is patent Respiratory effort is even, unlabored. GI: Abdomen is non-distended, Reports lower abdominal pain, upper abdominal pain, constipation, diarrhea, nausea. : Reports burning with urination, urinary frequency. Derm: Skin is pink, warm \T\ dry. Historical: - Allergies: 12:04 Codeine; ph 12:04 Sulfa (Sulfonamide Antibiotics); ph - PMHx: 12:04 acid reflux; Asthma; breast CA-2005; Diabetes - IDDM; Hyperlipidemia; Rheumatoid ph Arthritis; ulcerative colitis; - PSHx: 12:04 mastectomy R; ph - Immunization history:: Adult Immunizations unknown. - Social history:: Smoking status: Patient denies any tobacco usage or history of. Screenin:05 [facility] ED Fall Risk Assessment (Adult) History of falling in the last 3 months, ph including since admission No falls in past 3 months (0 pts) Confusion or Disorientation No (0 pts) Intoxicated or Sedated No (0 pts) Impaired Gait No (0 pts) Mobility Assist Device Used No (0 pt) Altered Elimination No (0 pt) Score/Fall Risk Level 0 - 2 = Low Risk Oriented to surroundings, Maintained a safe environment, Hourly rounding (assess needs \T\ fall precautionary measures) done. Abuse screen: Denies threats or abuse. Denies injuries from another. Nutritional screening: No deficits noted. Tuberculosis screening: No symptoms or risk factors identified. Assessment: 12:06 General: SEE TRIAGE ASSESSMENT. ph 14:30 GI: Bowel sounds present X 4 quads. Abd is soft and non tender X 4 quads. ko1 Vital Signs: 12:02 Resp 18; Temp 97.5; Weight 80.74 kg; Height 5 ft. 3 in. ; ph 12:53 BP 126 / 58; Pulse 67; Resp 18; Pulse Ox 95% on R/A; ko1 13:34 BP 107 / 58; Pulse 72; Resp 18; Pulse Ox 100% ; ko1 12:02 Body Mass Index 31.53 (80.74 kg, 160.02 cm) ph ED Course: 11:41 Patient arrived in ED. rg4 11:43 George Valdez DO is Attending Physician. ms3 11:53 Tracy Jo, RN is Primary Nurse. ko1 12:04 Triage completed. ph 12:05 Arm band placed on Patient placed in an exam room, on a stretcher. ph 12:05 Inserted saline lock: 22 gauge in left forearm, using aseptic technique. Blood ko1 collected. 12:06 Patient has correct armband on for positive identification. Call light in reach. Side ph rails up X2. Pulse ox on. NIBP on. 12:12 CBC with Diff Sent. ko1 12:12 CMP Sent. ko1 12:12 Lipase Sent. ko1 12:54 CT Abd/Pelvis - IV Contrast Only In Process Unspecified. EDMS 14:28 No provider procedures requiring assistance completed. IV discontinued, intact, ko1 bleeding controlled, No redness/swelling at site. Pressure dressing applied. Administered Medications: 12:16 Drug: Famotidine IVP 20 mg Route: IVP; Site: left forearm; ph 12:16 Follow up: Response: No adverse reaction ph 12:16 Drug: TORadol - Ketorolac IVP 10 mg Route: IVP; Site: left forearm; ph 12:16 Follow up: Response: No adverse reaction ph 14:25 CANCELLED (Physician Discretion): amiodarone PO 200 mg PO once ko1 14:26 CANCELLED (Physician Discretion): Furosemide IVP 60 mg IVP once; give over 2 minutes ko1 Medication: 12:06 VIS not applicable for this client. ph Outcome: 14:26 Discharge ordered by . 3 14:28 Discharged to home ambulatory. ko1 14:28 Condition: improved 14:28 Discharge instructions given to patient, Instructed on discharge instructions, follow up and referral plans. Demonstrated understanding of instructions, follow-up care. 14:37 Patient left the ED. ko1 Signatures: Dispatcher [employer] EDKrysten Torres, RN RN Vera De Luna rg4 George Valdez DO DO ms3 Tracy Jo RN RN ko1
[2022-11-10 14:47] VITALS: TEMP 97.5
[2022-11-10 14:49] VITALS: BP 107/58; O2SAT 100
== END 2022-11-10 14:37 | disposition home or self-care (01) ==
LOC: ER 11:38
DX: R10.32 Left lower quadrant pain (principal); E11.9 Type 2 diabetes mellitus without complications; Z88.2 Allergy status to sulfonamides; Z88.5 Allergy status to narcotic agent; Z85.3 Personal history of malignant neoplasm of breast; Z90.11 Acquired absence of right breast and nipple
CPT/HCPCS: 85025; 81001; 36415; 83690; 80053; 74177; 96375; 96374; 99284; Q9967

== ENCOUNTER 2023-01-28 06:21 | Day surgery (SDC) | payer OTHER ==
[2023-01-28] MEDS ORDERED: NA CHLORIDE 0.9% 1,000 ML ONE (07:07)
[2023-01-28] MEDS ORDERED: propofoL 200 MG/20 ML VIAL IV ONE (07:36)
[2023-01-28 08:16] VITALS: TEMP 97.1
[2023-01-28 08:33] VITALS: BP 136/53; O2SAT 97
== END 2023-01-28 08:33 | disposition home or self-care (01) ==
LOC: OR 06:21
PROVIDERS: ATTEND Surgery
PROC: 0DBN8ZX Excision of Sigmoid Colon, Via Natural or Artificial Opening Endoscopic, Diagnostic (ICD-10-PCS; principal; 2023-01-28 07:30)
DX: Z12.11 Encounter for screening for malignant neoplasm of colon (principal); Z86.010 Personal history of colon polyps; K64.4 Residual hemorrhoidal skin tags; K64.8 Other hemorrhoids; K57.30 Diverticulosis of large intestine without perforation or abscess without bleeding; K63.5 Polyp of colon; F41.9 Anxiety disorder, unspecified; J45.909 Unspecified asthma, uncomplicated; E78.00 Pure hypercholesterolemia, unspecified; E11.9 Type 2 diabetes mellitus without complications; Z85.3 Personal history of malignant neoplasm of breast
CPT/HCPCS: 82947; 88305; 45384; J2704; J7030

== ENCOUNTER 2025-02-25 13:40 | Emergency (ER) | payer OTHER ==
--- NOTE | 2025-02-25 15:03 | RAD REPORT ---
Exam:Knee Right 3 View HISTORY: Right knee pain FINDINGS: No fracture or dislocation seen Probable joint effusion. Osteoporosis. Mild to moderate osteoarthritis. If the patient continues to have symptoms to suggest an occult fracture, ligamentous or meniscal inju ry then MRI would be recommended
--- NOTE | 2025-02-25 15:11 | RAD REPORT ---
EXAMINATION: CT HEAD WITHOUT CONTRAST CT CERVICAL SPINE WITHOUT CONTRAST CLINICAL INDICATION: Head and neck injury status post fall. Head and neck pain TECHNIQUE: Axial CT images from the skull base to the vertex without intravenous contrast. Axial CT i mages through the cervical spine were obtained without intravenous contrast. Sagittal and coronal reformatted images were created from the data set. Coronal and sagittal reformatted images were creat ed from the data set. One or more of the following dose reduction techniques were used: Automated exposure control, adjustment of the mA and/or kV according to patient size, and/or iterative reconstr uction. Unless otherwise specified, incidental findings do not require dedicated imaging follow-up. [id number]. Comparison: [address] FINDINGS: An intracranial bleed is not seen. Ventricles are normal in caliber. No significant hypodensity within the brain No extra-axial fluid collection. No fluid within the sinuses/mastoids No fracture or dislocation is seen involving the cervical spine. Mild compression C6 vertebral body presumably chronic. [id number] central disc herniation C4-5. Spondylosis cervical spine IMPRESSION: No acute intracranial abnormality noted A cervical fracture is not seen. If the patient continues to have symptoms to suggest acute [employer]IN[employer]/spinal pathology then MRI would be rec ommended
--- NOTE | 2025-02-25 15:19 | RAD REPORT ---
EXAM: CT CHEST, ABDOMEN AND PELVIS WITHOUT CONTRAST CLINICAL INDICATION: Chest and abdominal pain status post fall TECHNIQUE: CT chest, abdomen and pelvis was performed, without IV contrast, as per department protoco l. Axial, sagittal and coronal reconstructions were obtained. One or more of the following dose reduction techniques were used: Automated exposure control, adjustment of the mA and/or kV according to the patient size, and/or iterative reconstruction. Unless otherwise specified, incidental findings do not require dedicated imaging follow-up. The lack of IV and oral contrast limits evaluation of the mediastinum, janes, vessels, organs and becky l. COMPARISON: CT abdomen 2022 FINDINGS: No pulmonary contusion. A mediastinal hematoma not seen. No pleural effusion. No pericardial effusion. 1.1 cm nodule right lobe thyroid gland. Right mastectomy Liver, spleen, pancreas, adrenals kidneys and bladder do not demonstrate a traumatic injury. 14 mm left adrenal mass Hounsfield unit 14 consistent with an adenoma. There is no evidence of diverticulitis. Moderate amount stool within the colon. Mild chronic anterior subluxation L4 on L5 IMPRESSION: No acute traumatic injury chest/abdomen/pelvis
--- NOTE | 2025-02-25 15:44 | ER ---
Nurse's Notes [facility] Name: Noreen Xiao Age: 74 yrs Sex: Female : 1950 Arrival Date: 02/25/2025 Time: 13:40 Bed 15 Private MD: Diagnosis: Fall on same level, unspecified;Unspecified injury of head, initial encounter;Effusion, right knee Presentation: 02/25 13:47 Chief complaint: EMS states: fell backwards and hit back of head. Care prior to kj2 arrival: Medication(s) given: Tylenol, 1000 mg. Mechanism of Injury: Fall from standing position. Trauma event details: Injury occurred: February 25, 2025. 13:47 Acuity: AMBROSIO 3 kj2 13:47 Method Of Arrival: EMS: [facility] 2 13:50 Coronavirus screen: At this time, unable to obtain information related to travel kj2 outside the [place] Ebola Screen: No symptoms or risks identified at this time. Initial Sepsis Screen: Does the patient meet any 2 criteria? No. Patient's initial sepsis screen is negative. Does the patient have a suspected source of infection? No. Patient's initial sepsis screen is negative. 13:52 Risk Assessment: Do you want to hurt yourself or someone else? Patient reports no kj2 desire to harm self or others. 14:40 Onset of symptoms was February 25, 2025. kj2 Historical: - Allergies: 13:53 Codeine; kj2 13:53 Sulfa (Sulfonamide Antibiotics); kj2 - PMHx: 13:53 acid reflux; Asthma; breast CA-2005; Diabetes - IDDM; Hyperlipidemia; Rheumatoid kj2 Arthritis; ulcerative colitis; - PSHx: 13:53 mastectomy R; kj2 - Immunization history: Last tetanus immunization: unknown. - Infectious Disease History:: Denies. - Family history:: not pertinent. - Hospitalizations: : No recent hospitalization is reported. - Social history:: Smoking status: unknown. Screenin:50 [facility] ED Fall Risk Assessment (Adult) History of falling in the last 3 months, kj2 including since admission Yes- single mechanical fall (1 pt) Confusion or Disorientation No (0 pts) Intoxicated or Sedated No (0 pts) Impaired Gait No (0 pts) Mobility Assist Device Used No (0 pt) Altered Elimination No (0 pt) Score/Fall Risk Level 3 or more points = High Risk Maintained a safe environment, Hourly rounding (assess needs \T\ fall precautionary measures) done. Abuse screen: Denies threats or abuse. Denies injuries from another. Nutritional screening: No deficits noted. Tuberculosis screening: No symptoms or risk factors identified. Primary Survey: 13:52 NO uncontrolled hemorrhage observed. Breathing/Chest: Spontaneous respiratory effort, kj2 equal unlabored respirations, breath sounds clear bilaterally, regular pattern, symmetrical chest rise and fall. Respiratory effort: spontaneous, unlabored. Circulation: No external hemorrhage present. Regular and strong central pulse, skin warm/dry/normal color. Hemorrhage: No external hemorrhage noted. Disability Pupils are equal, round, reactive to light and accommodation. Exposure/Environment: All clothing and personal items were removed. Forensic evidence collection is not deemed to be indicated at this time. Items placed in patient belonging bag. There is no evidence of uncontrolled external bleeding. A warming method has been applied: none needed. Reassessment Breathing: Spontaneous respiratory effort, equal unlabored respirations, breath sounds clear bilaterally, regular pattern with symmetrical chest rise and fall. Respiratory effort Unlabored Breath sounds Clear Circulation: No external hemorrhage noted. Regular and strong central pulse, skin warm/dry/normal color. Disability: Pupils Pupils are equal, round, reactive to light and accomodation. Assessment: 13:48 General: Appears in no apparent distress. Behavior is cooperative. Pain: Complains of kj2 pain in back of head Pain currently is 6 out of 10 on a pain scale. Neuro: Level of Consciousness is awake, alert, Oriented to person, place, time, situation. Cardiovascular: Patient's skin is warm and dry. Respiratory: Airway is patent Respiratory effort is unlabored. GI: No signs and/or symptoms were reported involving the gastrointestinal system. : No signs and/or symptoms were reported regarding the genitourinary system. 14:45 Reassessment: Patient appears in no apparent distress at this time. Patient and/or kj2 family updated on plan of care and expected duration. Pain level reassessed. Patient is alert, oriented x 3, equal unlabored respirations, skin warm/dry/pink. 15:03 Reassessment: Patient appears in no apparent distress at this time. returning from CT. kj2 15:37 Reassessment: assisted to bathroom. kj2 Vital Signs: 13:50 BP 144 / 71; Pulse 78; Resp 20; Temp 98(O); Pulse Ox 100% ; kj2 13:50 Weight 78.93 kg; Height 5 ft. 2 in. ; kj2 15:00 BP 138 / 76; Pulse 74; Resp 18; Pulse Ox 100% on R/A; kj2 13:50 Body Mass Index 31.82 (78.93 kg, 157.48 cm) kj2 Blue Diamond Coma Score: 13:54 Eye Response: spontaneous(4). Motor Response: obeys commands(6). Verbal Response: kj2 oriented(5). Total: 15. Trauma Score (Adult): 14:00 Eye Response: spontaneous(1); Verbal Response: oriented(1); Motor Response: obeys kj2 commands(2); Systolic BP: > 89 mm Hg(4); Respiratory Rate: 10 to 29 per min(4); [place] Score: 15; Trauma Score: 12 ED Course: 13:44 Patient arrived in ED. eb 13:45 Roe Stafford MD is Attending Physician. rn 13:46 Renetta Vigil RN is Primary Nurse. kj2 13:48 Triage completed. kj2 13:51 Arm band placed on Patient placed in the treatment room, on a stretcher. kj2 13:54 Patient has correct armband on for positive identification. Bed in low position. Call kj2 light in reach. Adult w/ patient. Provided Education on: call light. 14:20 XRAY Knee RIGHT 3 view In Process Unspecified. EDMS 14:56 Chest Abd Pelvis Wo Con In Process Unspecified. EDMS 14:56 Head C Spine Mpr Wo Con In Process Unspecified. EDMS 15:38 Assisted to bathroom. kj2 15:48 No provider procedures requiring assistance completed. IV discontinued, intact, kj2 bleeding controlled, No redness/swelling at site. Pressure dressing applied. 15:50 Patient maintains SpO2 saturation greater than 95% on room air. kj2 15:50 Thermoregulation: none needed. kj2 Administered Medications: No medications were administered Medication: 15:50 VIS not applicable for this client. kj2 Intake: 15:49 PO: 0ml; Total: 0ml. kj2 Outcome: 15:43 Discharge ordered by . rn 15:49 Discharged to home via wheelchair, with family, kj2 15:49 Patient's length of stay was not longer than 2 hours. 15:51 Condition: stable kj2 15:51 Discharge instructions given to patient, family, Instructed on discharge instructions, follow up and referral plans. Demonstrated understanding of instructions, follow-up care, 16:05 Patient left the ED. kj2 Signatures: Dispatcher [employer] Roe Mayorga MD MD rn Botello, Elizabeth eb Jordan, Krystal, RN RN kj2
--- NOTE | 2025-02-25 15:44 | EDPHYS ---
Physician Documentation [facility] Name: Noreen Xiao Age: 74 yrs Sex: Female : 1950 Arrival Date: 02/25/2025 Time: 13:40 Bed 15 Private MD: ED Physician Roe Stafford HPI: 02/25 15:35 This 74 yrs old Female presents to ER via EMS with complaints of Fall Injury. rn 15:35 . rn 15:36 Patient reports fall from standing, prior to arrival, was walking out of house and rn tripped, fell back and hit buttocks and head. Also hit and injured right knee. No blood thinner stronger than aspirin. No LOC. Members all events.. Historical: - Allergies: 13:53 Codeine; kj2 13:53 Sulfa (Sulfonamide Antibiotics); kj2 - PMHx: 13:53 acid reflux; Asthma; breast CA-2005; Diabetes - IDDM; Hyperlipidemia; Rheumatoid kj2 Arthritis; ulcerative colitis; - PSHx: 13:53 mastectomy R; kj2 - Immunization history: Last tetanus immunization: unknown. - Infectious Disease History:: Denies. - Family history:: not pertinent. - Hospitalizations: : No recent hospitalization is reported. - Social history:: Smoking status: unknown. ROS: 15:36 Constitutional: Negative for fever, chills, and weight loss, Cardiovascular: Negative rn for chest pain, palpitations, and edema, Respiratory: Negative for shortness of breath, cough, wheezing, and pleuritic chest pain, Abdomen/GI: Negative for abdominal pain, nausea, vomiting, diarrhea, and constipation, Back: Positive for tailbone pain MS/Extremity: Positive for knee pain Neuro: Positive for headache Exam: 15:36 Constitutional: This is a well developed, well nourished patient who is awake, alert, rn and in no acute distress. Neck: In c-collar, no midline cervical tenderness Cardiovascular: Regular rate and rhythm . No pulse deficits. Respiratory: No increased work of breathing, no retractions or nasal flaring. Abdomen/GI: Soft, non-tender Back: No spinal tenderness. No costovertebral tenderness. Full range of motion. MS/ Extremity: Pulses equal, no cyanosis. Neurovascular intact. Mild painful range of motion right knee without open wound or gross deformity Neuro: Awake and alert, GCS 15, oriented to person, place, time, and situation. Moving all 4 extremities with equal strength and sensation. Vital Signs: 13:50 BP 144 / 71; Pulse 78; Resp 20; Temp 98(O); Pulse Ox 100% ; kj2 13:50 Weight 78.93 kg; Height 5 ft. 2 in. ; kj2 15:00 BP 138 / 76; Pulse 74; Resp 18; Pulse Ox 100% on R/A; kj2 13:50 Body Mass Index 31.82 (78.93 kg, 157.48 cm) kj2 Ron Coma Score: 13:54 Eye Response: spontaneous(4). Motor Response: obeys commands(6). Verbal Response: kj2 oriented(5). Total: 15. Trauma Score (Adult): 14:00 Eye Response: spontaneous(1); Verbal Response: oriented(1); Motor Response: obeys kj2 commands(2); Systolic BP: > 89 mm Hg(4); Respiratory Rate: 10 to 29 per min(4); Ron Score: 15; Trauma Score: 12 MDM: 13:45 Medical Screening Exam initiated rn 15:36 Differential diagnosis: closed head injury, contusion, fracture, sprain, strain. Data rn reviewed: vital signs, nurses notes, radiologic studies, CT scan, plain films, and as a result, I will discharge patient. Independent interpretation of the following test(s) in the Emergency Department X-Ray: My interpretation is X-ray images right knee negative for acute fracture or dislocation per my interpretation. youth nutritional monitor: rate is 78 beats/min, Rhythm is normal sinus rhythm, regular, with no ectopy, Interpretation: normal rate, normal rhythm. Care significantly affected by the following chronic conditions: Diabetes, Rheumatoid arthritis, hypertension. Counseling: I had a detailed discussion with the patient and/or guardian regarding the historical points, exam findings, and any diagnostic results supporting the discharge/admit diagnosis, lab results, radiology results, the need for outpatient follow up, to return to the emergency department if symptoms worsen or persist or if there are any questions or concerns that arise at home. Special discussion: Based on the patient's history, exam and DX evaluation, there is no indication for emergent intervention or inpatient TX. It is understood by the patient/guardian that if the SXs persist or worsen they need to return immediately for re-evaluation. I discussed with the patient/guardian in detail that at this point there is no indication for admission to the hospital. It is understood, however, that if the symptoms persist or worsen the patient needs to return immediately for re-evaluation. Based on the history and exam findings, there is no indication for further emergent testing or inpatient evaluation. I discussed with the patient/guardian the need to see the primary care provider for further evaluation of the symptoms. 02/25 13:46 Order name: XRAY Knee RIGHT 3 view; Complete Time: 15:27 rn 02/25 14:06 Order name: Chest Abd Pelvis Wo Con; Complete Time: 15:27 EDMS 02/25 14:07 Order name: Head C Spine Mpr Wo Con; Complete Time: 15: EDMS Administered Medications: No medications were administered Disposition Summary: 02/25/25 15:43 Discharge Ordered Notes: Location: Home rn Problem: new rn Symptoms: have improved rn Condition: Stable rn Diagnosis - Fall on same level, unspecified rn - Unspecified injury of head, initial encounter rn - Effusion, right knee rn Followup: rn - With: Private Physician - When: As needed - Reason: Recheck today's complaints, Re-evaluation by your physician Discharge Instructions: - Discharge Summary Sheet rn - Head Injury, Adult rn - Fall Prevention in the Home, Adult rn - Knee Effusion rn Forms: - Medication Reconciliation Form rn - 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 - Prescription Opioid Use rn - Patient Portal Instructions rn - Leadership Thank You Letter rn Prescriptions: - Diclofenac Sodium 75 mg Oral tablet, delayed release (enteric coated) - take 1 tablet ORAL route 2 times per day As needed; 14 tablet; Refills: 0, rn Product Selection Permitted - Cyclobenzaprine 5 mg Oral tablet - take 1 tablet ORAL route every 8-12 hours As needed; 15 tablet; Refills: 0, rn Product Selection Permitted Signatures: Dispatcher [employer] EDMS Roe Stafford MD MD rn Jordan, Krystal, RN RN kj2 Corrections: (The following items were deleted from the chart) 13:46 13:46 Head C Spine Cap Wo Con+CT.RAD.BRZ ordered. EDMS EDMS 13:46 13:46 Knee Right 3 View+RAD.RAD.BRZ ordered. EDMS EDMS
[2025-02-25 16:30] VITALS: O2SAT 100
[2025-02-25 16:32] VITALS: BP 144/71; TEMP 98
== END 2025-02-25 16:05 | disposition home or self-care (01) ==
LOC: ER 13:40
DX: S09.90XA Unspecified injury of head, initial encounter (principal); M25.461 Effusion, right knee; E11.9 Type 2 diabetes mellitus without complications; E78.5 Hyperlipidemia, unspecified; W18.30XA Fall on same level, unspecified, initial encounter; Y93.89 Activity, other specified; Y92.018 Other place in single-family (private) house as the place of occurrence of the external cause; Z88.5 Allergy status to narcotic agent; Z88.2 Allergy status to sulfonamides; Z85.3 Personal history of malignant neoplasm of breast
CPT/HCPCS: 70450; 71250; 72125; 74176; 99284